=== PATIENT | female | born 1960 | race Caucasian/White ===

== ENCOUNTER 2025-01-03 15:14 | Outpatient (AMB) | payer OTHER, SELFPAY ==
--- NOTE | 2025-01-03 15:24 | A.OFFPC_ITS ---
Vital Signs 01/03/25 15:45 Height 5 ft 1.81 in Weight 128 lb 2 oz BMI 23.6 BP 132/84 Blood Pressure Location Rt brachial Position Sitting Respiration 12 Pulse 79 Pulse Source Pulse Oximeter Pulse Oximetry (%) 99 Oxygen Delivery Method Room Air Intake Visit Reasons: Establishing care Intake Note: New patient visit Allergies latex Allergy (Severe, Verified 01/03/25 15:32) Difficulty Breathing lisinopril Adverse Reaction (Intermediate, Verified 01/03/25 15:33) Cough penicillin Allergy (Unknown, Uncoded 01/03/25 15:33) Unknown Tobacco use date assessed: 01/03/25 Fall risk assessment: No Falls in past year Last assessed Fall Risk: 01/03/25 Dental Screening Dental Screen Date: 01/03/25 Did you have a dental visit in the last 12 months?: Yes Did you have a dental problem in the last 6 months where you did not have access to dental care?: No Was dental information given to patient?: Patient has dentist HPI HPI Comments History of Present Illness Details 64 year old female with a past medical h istory of hypertension, chronic anxiety, hypothyroidism, presenting to establish are CV: On amlodipine 10mg, hctz 12.5mg daily, valsartan daily. Denies chest pain, shortness of breath. BH: Was on zoloft, stopped it last week. She was on a low dose of lexapro which was good but when she tried to increase the lexapro and that was too much. Endocrine: On levothyroxine 25 daily. ROS CONSTITUTIONAL: Denies weight loss, fever and chills. HEENT: Denies changes in vision and hearing. RESPIRATORY: Denies SOB and cough. CV: Denies palpitations and CP GI: Denies abdominal pain, nausea, vomiting and diarrhea. : Denies dysuria and urinary frequency. MSK: Denies new myalgia and joint pain. SKIN: Denies rash and pruritus. NEUROLOGICAL: Denies headache PSYCHIATRIC: Denies recent changes in mood. PHYSICAL EXAM: GENERAL: Alert and oriented x 3. NAD EYES: EOMI. Anicteric. HENT: Moist mucous membranes. No scleral icterus. No cervical lymphadenopathy. LUNGS: Clear to auscultation bilaterally. CARDIOVASCULAR: Regular rate and rhythm. No murmur. No JVD. ABDOMEN: Soft, non-tender +bs EXTREMITIES: No edema. Non-tender. SKIN: No rashes or lesions. Warm. NEUROLOGIC: No focal neurological deficits. CN II-XII grossly intact PSYCHIATRIC: Cooperative. Appropriate mood and affect [facility] Surgical History History of thyroid surgery Family History Mother HTN (hypertension) Father Bladder cancer Social History Housing: House Patient Tobacco Use Status: Former Tobacco user (quit 04/2024) Cigarette Packs Per Day: 1 Years Smoked: 10 e-Cigarette/Vaping Use: Never Used Second Hand Smoke Exposure: No Current occupational status: retired Cognitive needs: No Hearing needs: No Vision needs: No Questionnaire PHQ-9 Over the last 2 weeks, how often have you been bothered by any of the following problems? 1. Little interest or pleasure in doing things: not at all 5. Poor appetite or overeating: not at all 6. Feeling bad about yourself - or that you are a failure or have let yourself or your family down: not at all 7. Trouble concentrating on things, such as reading the newspaper or watching television: not at all 8. Moving or speaking so slowly that other people could have noticed. Or the opposite - being so fidgety or restless that you have been moving around a lot more than usual: not at all 9. Thoughts that you would be better off or of hurting yourself in some way: not at all Source: Developed by Drs. Buck Givens, Abril Rivera, Zander Benavidez and colleagues, with an educational marry from [employer]. Thrive Questionnaire Date Thrive assessed: 01/03/25 I am a: Patient What is your living situation today?: I have a steady place to live Within the past 12 months, did the food you bought not last and you didn't have the money to get more?: Never true Within the past 12 months, did you worry whether your food would run out before you got money to buy more?: Never true Do you have trouble paying for medicines?: No Do you have trouble getting transportation to medical appointments?: No Do you have trouble paying your heating and electricity bill?: No Do you have trouble taking care of your child, family member or friend?: No Do you have trouble with day-to-day activities such as bathing, preparing meals, shopping, managing finances, etc.?: No Are you currently unemployed and looking for a job?: No Are you interested in more education?: No Please select the resources that you would like help with: None Currently or been in a relationship where the following occur: No concerns reported THRIVE Score: 0 AUDIT C Alcohol Use Questionnaire (AUDIT-C) 1. How often do you have a drink containing alcohol?: Never Total Score: 0 CHERYLE-7 AMB Questionnaire CHERYLE-7 Feeling nervous, anxious, or on edge: 1 = Several days Not being able to stop or control worryin = Not at all Worrying too much about different things: 0 = Not at all Trouble relaxin = Not at all Being so restless that it is hard to sit still: 0 = Not at all Becoming easily annoyed or irritable: 0 = Not at all Feeling afraid as if something awful might happen: 0 = Not at all Total CHERYLE-7 score (0-4 normal; 5-9 mild; 10-14 moderate; 15-21 severe): 1 Source: Developed by Drs. Buck Givens, Abril Rivera, Zander Benavidez and colleagues, with an educational marry from [employer]. Physical exam (Primary Care) Vital Signs: Last Vital Signs Pulse 79 01/03/25 15:45 Resp 12 01/03/25 15:45 BP 132/84 01/03/25 15:45 Pulse Ox 99 01/03/25 15:45 Oxygen Delivery Method Room Air 01/03/25 15:45 BMI result Body Mass Index 23.6 Tobacco/Smoking Status: Tobacco use Status Tobacco use date assessed 01/03/25 01/03/25 15:42 Patient Tobacco Use Status Former Tobacco user (quit 01/03/25 15:42 2023) e-Cigarette/Vaping Use Never Used 01/03/25 15:42 Thrive Assessment: Date of Thrive Assessment Date Thrive assessed 01/03/25 01/03/25 15:42 Currently or been in a relationship where the following occur: No concerns reported Coding Level of Care Code New Pt Level 4 (12439) Diagnoses Encounter to establish care Z76.89 Hypothyroidism, unspecified type E03.9 Hypothyroidism type: unspecified Primary hypertension I10 Hypertension type: primary hypertension Assessment & Plan Assessment & Plan (1) Encounter to establish care: Code(s): Z76.89 - Persons encountering health services in other specified circumstances Category: Medical (2) Hypothyroid: Code(s): E03.9 - Hypothyroidism, unspecified Category: Medical Qualifiers: Hypothyroidism type: unspecified Qualified Code(s): E03.9 - Hypothyroidism, unspecified (3) Hypertension: Code(s): I10 - Essential (primary) hypertension Category: Medical Qualifiers: Hypertension type: primary hypertension Qualified Code(s): I10 - Essential (primary) hypertension Plan 64 y/o female presenting to establish care. Past medical, surgical, social and family history reviewed. Labs ordered. Orders: Orders Comprehensive Met. Panel 01/05/25 E03.9 - Hypothyroidism, unspecified, I10 - Essential (primary) hypertension, Z76.89 - Persons encountering health services in other specified circumstances TSH reflex Free T4 01/05/25 E03.9 - Hypothyroidism, unspecified, I10 - Essential (primary) hypertension, Z76.89 - Persons encountering health services in other specified circumstances Vitamin D 25-OH (D2 and D3) 01/05/25 R79.89 - Other specified abnormal findings of blood chemistry Hemoglobin A1c 01/05/25 E03.9 - Hypothyroidism, unspecified, I10 - Essential (primary) hypertension, Z76.89 - Persons encountering health services in other specified circumstances
[2025-01-03 15:45] VITALS: BP 132/84; PULSE 79; RESP 12; O2SAT 99; BMI 23.6
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
--- OUTSIDE RECORDS SUMMARY | 2025-01-03 17:31 | XMS_ITS ---
Author Organization [facility] fluid OperationsLexy [facility] Address [address] [place] [id number] Care Team Providers Care Advertising Layout Worker Name Role Phone CHAO CARNEY Primary Care Provider [phone] MILES PHILLIPS Unavailable [phone] ALLERGIES Allergen (clinical drug ingredient) Drug/Non Drug Allergy documented on EMR Reaction Allergy Type Onset Date Status clonidine Clonidine Dry mouth and dizziness Drug Allergy Active Penicillin Unknown Drug Allergy Active REASON FOR VISIT BP follow up MEDICATIONS Medication SIG (Take, Route, Frequency, Duration) Notes Start Date End Date Status hydroCHLOROthiazide 12.5 MG 1 tablet in the morning Orally Once a day for 90 days 12/03/2024 03/21/2025 Active Sertraline HCl 50 MG 1 tablet Orally Once a day for 90 days 09/16/2024 Active amLODIPine Besylate 10 MG TAKE 1 TABLET BY MOUTH EVERY DAY for 90 days Active Levothyroxine Sodium 25 MCG 1 tablet in the morning on an empty stomach Orally Once a day for 90 days Active Valsartan 320 MG 1 tablet Orally Once a day for 90 days 11/12/2024 Active busPIRone HCl 7.5 MG 1 tablet Orally Twice a day for 90 days 09/22/2024 03/03/2025 Active LORazepam 0.5 MG 1 tablet Orally twice a day PRN Not-Taking Cholecalciferol 1.25 MG (42906 UT) 1 capsule Orally once a week Not-Taking cloNIDine HCl 0.2 MG 1 tablet Orally twice a day for 30 days 08/27/2024 Not-Taking amLODIPine Besylate 3mg QD Not-Taking Magnesium Glycinate Plus Active Vitamin D (Cholecalciferol) 50 MCG (2000 [...] smoker (10-19 cigs/day) Section Notes: Lives in [place], [place] VITAL SIGNS Height 62.5 in 12/21/2024 Height-cm 158.75 cm 12/21/2024 Encounters Encounter Location Date Provider Diagnosis [address] [id number] 12/21/2024 MILES PHILLIPS Essential (primary) hypertension I10 and Mixed anxiety and depressive disorder F41.8 ASSESSMENTS Encounter Date Diagnosis Assessment Notes Treatment Notes Treatment Clinical Notes Section Notes 12/21/2024 Essential (primary) hypertension (ICD-10 - I10) [...] siginificant improvement Working on increasing her activity level/socializat ion To get new therapist as well 12/21/2024 Other I personally spent with patient >30 minutes which includes education and coordination of care. PLAN OF TREATMENT Medication Medication Name Sig Start Date Stop Date Notes hydroCHLOROthiazide 12.5 MG 1 tablet in the morning Orally Once a day for 90 days 12/03/2024 03/21/2025 Sertraline HCl 50 MG 1 tablet Orally Onc e a day for 90 days 09/16/2024 amLODIPine Besylate 10 MG TAKE 1 TABLET BY MOUTH EVERY DAY for 90 days Levothyroxine Sodium 25 MCG 1 tablet in the morning on an empty stomach Orally Once a day for 90 days Valsartan 320 MG 1 tablet Orally Once a day for 90 days 11/12/2024 Treatment Notes Assessment Notes Essential (primary) hypertension Finally achieved a sweet spot in her BP management Her nephew is still going to monitor her BP discussed anxiety and BP as well Discussed hydration and eating a banana/glass of OJ daily to ensure potassium levels Has follow up with new PCP in 2 mo Mixed anxiety and depressive disorder As in HPI, siginificant improvement Working on increasing her activity level/socialization To get new therapist as well Other I personally spent w ith patient >30 minutes which includes education and coordination of care. Next Appt Details Follow Up: prn, Reason: N/A Progress Notes * JORGITO SOLORZANOADOB:1960 (63 yo F)Acc No.[id number]:12/21/2024 Progress Note Patient:??DARREL SOLORZANO Provider:??MILES PHILLIPS NP :1960?Age:63 Y?Sex:Fe male Date:12/21/2024 Phone: Address:[address] [place] [address], [facility] Pcp:CHAO CARNEY Subjective: * Chief Complaints: * ?BP follow up * HPI: ?Patient Care Team:? Providers/Specialist: Spiritual Counselor - Kimi Bautista ?Therapist: Joni Vera. ?Visit info:? The patient consents to HIPAA compliant telehealth visit using video platform within EHR system. The patient states they are in a private location in their home and the provider is located in the office in a private room. ?-Pt states she is feeling really good and finally happy with her BP; she went to the dentist last week and her BP was 133/82. ?-She states every once in a while she gets dizzy if she turns her head too fast or changes positions too quickly ?-Still is dealing with anxiety but much less, has not needed her prn buspar since the last time in the office. ?-She stopped therapy at [facility] but does continue with her nonpharm coping mechanisms. * Medical History:?? 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 * OB History:?? Histo ry:??AB Spontaneous:??1.?? * Surgical History:??Thyroid N odule 2004Vaginal Ablasion 2002 * Hospitalization/Major Diagno stic Procedure:?? * Family History:??Father: dec eased 47 yrs, Bladder Cancer.??Mother: 93 yrs.?? * Social History:?Tobacco Use:??Tobacco Use/Smoking??Tobacco use:??former smoker,??When did you start smoking???05/06/2024,??How long has it been since you last smoked???1-3 months,??Additional Findings: Tobacco User??Moderate cigarette smoker (10-19 cigs/day).?Drugs/Alcohol:??Do you smoke marijuana?: Admits, minimally. Do you drink alcohol?: Yes, Socially. ?Household:??Household??Marital status:??,??Number of adults in household:??1,??Any household pets???Yes Dog - Sweet Pea.?Miscellaneous:??Exercise: Does not exercise regularly. Occupation: retired. ?Lives in [place], [place]. * Medications:??TakingVitamin D (Cholecalciferol) 50 MCG (1999) Capsule 1 capsule Orally Once a day Magnesium Glycinate Plus hydroCHLOROthiazide 12.5 MG Tablet 1 tablet in the morning Orally Once a day , stop date 02/01/2025Sertraline HCl 50 MG Tablet 1 tablet Orally Once a day amLODIPine Besylate 10 MG Tablet TAKE 1 TABLET BY MOUTH EVERY DAY Levothyroxine Sodium 25 MCG Tablet 1 tablet in the morning on an empty stomach Orally Once a day Valsartan 320 MG Tablet 1 tablet Orally Once a day busPIRone HCl 7.5 MG Tablet 1 tablet Orally Twice a day As needed, stop date 03/03/2025Taking Vitamin D (Cholecalciferol) 50 MCG (2000 UT) Capsule 1 capsule Orally Once a day Taking Magnesium Glycinate Plus Taking hydroCHLOROthiazide 12.5 MG Tablet 1 tablet in the morning Orally Once a day , stop date 02/01/2025Taking Sertraline HCl 50 MG Tablet 1 tablet Orally Once a day Taking amLODIPine Besylate 10 MG Tablet TAKE 1 TABLET BY MOUTH EVERY DAY Taking Levothyroxine Sodium 25 MCG Tablet 1 tablet in the morning on an empty stomach Orally Once a day Taking Valsartan 320 MG Tablet 1 tablet Orally Once a day Taking busPIRone HCl 7.5 MG Tablet 1 tablet Orally Twice a day As needed, stop date 03/03/2025Not-TakingLORazepam 0.5 MG Tablet 1 tablet Orally twice a day ordered by stepping stones...not taking, Notes to Pharmacist: PRNCholecalciferol 1.25 MG (12807 UT) Capsule 1 capsule Orally once a week for 4 weeks then 2000 iu dailycloNIDine HCl 0.2 MG Tablet 1 tablet Orally twice a day As neededamLODIPine Besylate , Notes to Pharmacist: 3mg QDNot-Taking LORazepam 0.5 MG Tablet 1 tablet Orally twice a day ordered by stepping stones...not taking, Notes to Pharmacist: PRNNot-Taking Cholecalciferol 1.25 MG (64879 UT) Capsule 1 capsule Orally once a week for 4 weeks then 2000 iu dailyNot-Taking cloNIDine HCl 0.2 MG Tablet 1 tablet Orally twice a day As neededNot-Taking amLODIPine Besylate , Notes to Pharmacist: 3mg QD * Allergies:??Penicillin: Solitario rgyClonidine: Dry mouth and dizziness - Side Effectsno[Allergies Verified] Objective: * Vitals:??BP: Not Taken - Tel [facility], Ht: 62.5 in, Ht-cm: 158.75 cm. Assessment: * Assessment: 1.??Essential (primary) hype rtension - I10 (Primary)??2.??Mixed anxiety and depressive disorder - F41.8?? Plan: * Treatment: 2.??Mixed anxiety and depres sive disorder?? Notes: As in HPI, siginificant improvement Working on increasing her activity level/socialization To get new therapist as well ? 3.??Others?? Notes: I personally spent with patient >30 minutes which includes education and coordination of care.? * Procedure Codes:?? * Preventive Medicine:?Last CPE: 2019 Colonoscopy: Never Endoscopy: Never COVID Vac: No FLU Vac: No Shingles: No PV: No RSV: No. * Follow Up:??prn (Reason: N/A ) * Billing Information: * Visit Code:?? 79109 Office Visit, Est Pt., Level 4. * Procedure Codes:?? * Sign off status: Completed true * Provider:??MILES PHILLIPS NP Date:?? History and Physical Notes * HPI (History of Present Illness) Category Sub-Category Detail Notes Category Not es Patient Care Team Providers/Specialist: Spiritual Counselor - Kimi Bautista Therapist: Briana CruzyciatrJoni alicia
--- OUTSIDE RECORDS SUMMARY | 2025-01-03 17:31 | XMS_ITS | Data Portability ---
Author Organization [facility] Address [address] [place] [address] Assessment No assessment recorded. Plan of Treatment Reminders Order Date Submit Date Provider Last Modified By Organization Details Last Modified Time Details Appointments None recorded. Lab rapid strep group A, throat [facility], [address] [place], [address], 3 12:15:09 rapid flu (A+B) [facility]23 [facility], [address] [place], [address], 3 12:15:11 streptococc us group A, culture, throat 2022 023 [place], [address] [place] [address], [place], [address], 3 08:07:49 Referral None recorded. Procedures None recorded. Surgeries None recorded. Imaging None recorded. Medication Orders benzonatate 200 mg capsule 2022 023 [facility] #[id number], [address] [place], [address], 3 12:15:10 prednisone 20 mg tablet 2022 023 [facility] #[id number], [address] [place], [address], 12:15:10 albuterol sulfate HFA 90 mcg/actuati on aerosol inhaler 2022 023 [id number] [address] [place], [address], 12:15:10 Allergy Relief (fluticason e) 50 mcg/actuati on nasal spray,suspe nsion 2022 023 [id number] [address] [place], [address], 12:15:10 Patient TargetsNo targets recorded. Patient Instructions Encounter Date Encounter Id Patient Instructions Last Modified By Organization Details Last Modified Time 08/02/2023 [id number] sore throat: car e instructions Not available 08/02/2023 12:15:06 Use over the counter medications for your sore throat. Basic lozenges (cough drops) or lozenges with an anesthetic (numbing agent) can be used as needed for quick results; look for the active ingredient, benzocaine, for numbing lozenges (like Cepacol Extra or Chloraseptic Max). Gargling with warm salt water can also relieve pain. Dissolve 1/4 to 1/2 teaspoon in 8-ounces of warm water; gargle and spit salt solution every hour, as needed. Sore throat pain can also be reduced by taking regular doses of acetaminophen (tylenol) or ibuprofen (Advil); if you are given a prescription of PREDNISONE, you may continue to take acetaminophen, but do not take ibuprofen or naprosyn. While this isn't quick, it can significantly reduce pain within an hour after taking. Please switch toothbrush after being on antibiotic for 24 hrs. You should follow-up with your PCP in days, or at any time if your condition does not improve or worsens. Any acute change should prompt a visit to the nearest Emergency Department. . Not available 08/02/2023 12:15:03 Patient instruct ed on worsening signs and symptoms that would require further evaluation by ED or PCP such as fever of 101.0 or greater, congestion accompanied with coughing, vomiting, diarrhea, abdominal pain, decreased oral intake, lethargy, or other new symptom(s) experienced not discussed during this visit. Use humidifier and ensure good hydration. If you experience new concerning symptoms, shortness of breath, respiratory distress, or chest pain go to the ER. Use the medications prescribed. May use Decongestants if tolerated and no history of elevated blood pressure or Diabetes. Use saline nasal saline and Flonase daily for1 week. You may use tylenol for pain/fever. Do not take prednisone with Ibuprofen. Get some extra rest. When should you call for help? Call anytime you think you may need emergency care. For example, call if: You have severe trouble breathing. Call your doctor now or seek immediate medical care if: You have new or worse trouble breathing. You cough up dark brown or bloody mucus (sputum). You have a new or higher fever. You have a new rash. Watch closely for changes in your health, and be sure to contact your doctor if: You cough more deeply or more often, especially if you notice more mucus or a change in the color of your mucus. You are not getting better as expected. [email or web address] Not available 08/02/2023 12:14:44 Reason for Referral None Reported. Results Created Date Observation Date Name Description Value Unit Range Abnormal Flag Note LastModifiedBy Organization Detail LastModifiedTime 08/02/2008/05/2023 BETA STREP GP A CULTU RE beta strep gp A culture NEGATI VE Refer ence Range : Negat karin Not Available [facility] ([facility]) [address] [facility], [place], [address], 08/05/2023 08:07:49 08/02/2008/02/2023 rapid flu (A+B) Unknown Analyte negati ve Not Available [facility] [address] [place], [address], 08/02/2023 11:43:20 08/02/2008/02/2023 rapid flu (A+B) Unknown Analyte negati ve Not Available [facility] [address] [place], [address], 08/02/2023 11:43:20 08/02/20 23 08/02/2023 rapid flu (A+B) Unknown Analyte negati ve Not Available [facility] [address] [place] [address], [address], 08/02/2023 11:43:20 08/02/2008/02/2023 rapid flu (A+B) Unknown Analyte yes Not Available [address] [place], [place] [address]em[address] [place] [address], [address], 08/02/2023 11:43:20 08/02/2008/02/2023 rapid strep group A, throa t Unknown Analyte negati ve Not Available [address] [place], [place] [address]em[address] [place] [address], [address], 08/02/2023 11:43:11 08/02/20 23 08/02/2023 rapid strep group A, throa t Unknown Analyte negati ve Not Available [address] [place], [place] [address] [address] [place] [address], [address], 08/02/2023 11:43:11 08/02/2008/02/2023 rapid strep group A, throa t Unknown Analyte yes Not Available [address] [place], [place] [address]em[place] [address] [place] [address], [address], 08/02/2023 11:43:11 Result Notes None recorded. Problems No Known Problems Medical Equipment None Reported. Allergies Allergen ID Allergen Name Allergen Category Reaction Reaction Severity Criticality Documentation Date Start Date Code Code System Note Provider Name and Address Organization Details Recorded Time 820651 Product containin g penicilli n (product) medicatio n Not available Not available Not available 08/02/2023 43007 8001 SNOMED LIVE Flores [facility] - [facility] 11:43:42 678111 Bactrim medicatio n Not available Not available Not available 08/02/2023 13151 9 RxNorm LIVE Flores [facility] 11:43:48 Medications Name Sig Start Date Stop Date Status Note LastModified by Organization Details LastModified Time benzonatate 200 mg capsule Take 1 capsule 3 times a day by oral route as needed for 7 days. 2022 active Not Available Not Available Not Avai lable prednisone 20 mg tablet Take 2 tablets every day by oral route in the morning for 3 days. 2022 active Not Available Not Available Not Avai lable albuterol sulfate HFA 90 mcg/actuatio n aerosol inhaler Inhale 2 puffs every 4-6 hours by inhalation route as needed for 10 days. 2022 active Not Available Not Available Not Avai lable Allergy Relief (fluticasone ) 50 mcg/actuatio n nasal spray,suspen kassie [place] 1 spray every day by intranasal route in the morning for 30 days. 2022 active Not Available Not Available Not Avai lable Vitals Date Recorded Body height Body mass index (BMI) Body weight Pain severity - 0-10 verbal numeric rating [Score] - Reported Respiratory rate Oxygen saturation Oxygen saturation in Arterial blood by Pulse oximetry Heart rate Body temperature Systolic blood pressure Diastolic blood pressure Provider Name and Address Organization Details Last Updated DateTime 157.48 cm 22.9 kg/m2 80083.0 5 g 0 19 /min 97 % 97 % 77 /min 98.7 [degF] 159 mm[Hg] 99 mm[Hg] KYRA Guillaume [facility] 11:46:49 Social History Question Answer Notes LastModified by Organizat ion Details LastModified Time Tobacco Smoking Status Current Every Day Smoker [facility] 08/02/2023 11:44:17 What Is Your Level Of Alcohol Consumption? None Information not available 08/02/2023 Have You Had A Flu Shot This Season? No Information not available 08/02/2023 If No, Would You Like A Flu Shot Today? No Information not available 08/02/2023 How Much Tobacco Do You Smoke? 0.5 PPD Information not available 08/02/2023 Do You Use Any Illicit Or Recreational Drugs? No Information not available 08/02/2023 Sex: Unknown Functional Status None recorded. Mental Status None recorded. Family History Relationship Description Onset Age of this Age Resolved Age Notes LastModified by Organization Details LastModified Time Father No current problems or disability Not available 11:44:10 Mother No current problems or disability Not available 11:44:10 Medical History No medical history recorded. Gynecological History Statement/Question Response LMP N/A Obstetrics History GPAL:G 0 P 0 0 0 0 Past Encounters Encounter ID Performer Location Encounter Start Date Encounter Closed Date Diagnosis/Indication Diagnosis SNOMED-CT Code Diagnosis ICD10 Code Diagnosis [place] [id number] [place] [address] [phone] 08/02/2023 11:32:51 08/02/2023 12:16:37 Acute pharyngitis 796441163 J02.9 Acute bronchitis 4315499 2 J20.9 Health Concerns Section Related Observation LastModified by Organization Detai ls LastModified Time None Recorded Concern Status LastModified by Organization Details LastModified Time None Recorded Advance Directives Directive None Recorded Payers Encounter Date Sequence Insurance Name Policy Number Policy Meadows Covered Member ID Meadows Member ID Guarantor Name 08/02/2023 PROMPT PAY Gl nadir Akers Notes Date Note Type Note Provider Name and Address Organization Details Recorded Time 3 text/html Sore throatReported bypatient.Source of patient informationInformation obtained from patient; Patient arrived at Urgent Care ambulatory; learning styles: auditory Location:throat Severity:mild Quality:sharp; burning Onset/Timin days Associated Symptoms:no sputum production; no shortness of breath; no wheezing; no vomiting; no nausea;sore throat;hoarseness;coughing; sinus pain/ congestion Context:no foreign travel; non-smoker;sick contact Modifying Factors:exposed to Strep non household Cole Cedeno NP [address] [place], [address], [place] - [facility] 08/02/2023 12:15:44 OBGyn Episode No OBEpisode recorded.
--- OUTSIDE RECORDS SUMMARY | 2025-01-03 17:32 | XMS_ITS ---
Author Organization [facility] Address [address], [place] [id number] Care Team Providers Care Tax Examiner Name Role Phone CHAO CARNEY Primary Care Provider MIELS PHILLIPS Unavailable [phone] REASON FOR VISIT f/u meds Encounters Encounter Location Date Provider Diagnosis [address] [id number] 12/01/2024 MILES PHILLIPS Major depressive disorder with current active episode, unspecified depression episode severity, unspecified whether recurrent F32.9 and Essential (primary) hypertension I10 ASSESSMENTS Encounter Date Diagnosis Assessment Notes Treatment Notes Treatment Clinical Notes Section Notes 12/01/2024 Major depressive disorder with current active episode, unspecified depression episode severity, unspecified whether recurrent (ICD-10 - F32.9) 12/01/2024 Essential (primary) hypertension (ICD-10 - I10) PLAN OF TREATMENT No Information Progress Notes * NUBIA SOLORZANOB:1960 (64 yo F)Acc No.[id number]:12/01/2024 Progress Notes Patient:??DARREL SOLORZANO Provider:??MILES PHILLIPS NP :1960?Age:63 Y?Sex:Fe male Date:12/01/2024 Phone: Address:[address] [place], [place] Pcp:CHAO CARNEY Subjective: * Chief Complaints: * ?1. F/u meds. * ROS:?all systems reviewed and are non-contributory unless specified in the HPI. * Medical History:?? Objective: * Examination: ?General Examination: ?GEN: NAD, speaking in full complete sentences, thoughts clear and appropriate ?RESP: nonlabored breathing, lungs clear/equal all maria ?CV: S1S2 regular ?NEURO: AO x 3 ?PSYCH: judgment/insight intact, NL mood/affect. Assessment: * Assessment: 1.??Major depressive disorde r with current active episode, unspecified depression episode severity, unspecified whether recurrent - F32.9 (Primary)??2.??Essential (primary) hypertension - I10?? Plan: * Treatment: * Billing Information: * Visit Code:?? * Procedure Codes:?? * Sign off status: Pending * Provider:??MILES PHILLIPS NP Date:?? History and Physical Notes * Examination Category Sub-Category Detail Notes Category Not es General Examination GEN: NAD, speaking in full complete sentences, thoughts clear and appropriate RESP: nonlabored breathing, lungs clear/equal all maria CV: S1S2 regular NEURO: AO x 3 PSYCH: judgment/insight intact, NL mood/affect
--- OUTSIDE RECORDS SUMMARY | 2025-01-03 17:32 | XMS_ITS | Clinical Summary ---
Author Organization [facility] Address [id number] [place] [id number] Care Team Providers Care Sports Trainer Name Role Phone Khushbu Gonzalez MD Primary Care Provider [phone] Allergies No known active allergies Medications propranoloL (INDERAL) 10 mg tablet TAKE 1 TABLET BY MOUTH TWICE A DAY 180 tablet 1 09/17/2024 Active cholecalciferol (VITAMIN D-3) 1,250 mcg (50,000 unit) capsule Take 1 Capsule by mouth once a week. 06/24/2024 Active levothyroxine (SYNTHROID, LEVOTHROID) 25 mcg tablet Take 1 tablet (25 mcg total) by mouth 1 (one) time each day. 06/22/2024 Active lisinopriL (PRINIVIL,ZESTR IL) 30 mg tablet Take 1 tablet (30 mg total) by mouth 1 (one) time each day. 06/22/2024 Active escitalopram (LEXAPRO) 20 mg tablet TAKE 1 TABLET BY MOUTH EVERY DAY 90 tablet 10/19/2024 Active Active Problems Problem Noted Date Diagnosed Date Anxiety 06/22/2024 Depression 06/22/2024 Hypertension 06/22/2024 Hypothyroid 06/22/2024 Surgical History Surgery Date Site/Laterality Comments OTHER SURGICAL HISTORY 2000 PROCEDURE: HISTORICAL SUBTOTAL THYROIDECTOMY OTHER SURGICAL HISTORY PROCEDURE: HISTORICAL UNSPECIFIED SURGERY; COMMENT: endometrial ablation Family History Medical History Relation Name Comments Bladder Cancer Father Diabetes Maternal Grandmother Hypertension Mother Relation Name Status Comments Father Maternal Grandmother Mother Social History Tobacco Use Types Packs/Day Years Used Date Smoking Tobacco: Former Cigarettes Q uit: 04/10/2024 Smokeless Tobacco: Never Alcohol Use Standard Drinks/Week Comments Not Currently 0 (1 standard drink = 0.6 oz pur e alcohol) Comments Unknown Sex and Gender Information Value Date Recorded Sex Assigned at Not on file Legal Sex Female 11:39 AM EDT Gender Identity Not on file Sexual Orientation Not on file Obstetrics History Last Filed Vital Signs Vital Sign Reading Time Taken Comments Blood Pressure 180/98 07/20/2024 3:24 PM EDT Pulse 63 07/20/2024 1:33 PM EDT Temperature - - Respiratory Rate - - Oxygen Saturation - - Inhaled Oxygen Concentration - - Weight 55.8 kg (123 lb) 07/20/2024 1:33 PM EDT Height 157.5 cm (5' 2 ) 07/20/2024 1:33 PM EDT Body Mass Index 22.5 07/20/2024 1:33 PM EDT Plan of Treatment Upcoming Encounters Date Type Department Care Team (Late st Contact Info) Description 02/23/2025 2:00 PM EDT Office Visit Adult Medicine [address] [phone] Khushbu Gonzalez MD [address] [place] [phone] Health Maintenance Due Date Last Done Comments Breast Cancer Screening 1960 DTaP,Tdap,and Td Vaccines (1 - Tdap) 1978 Cervical Cancer Screening: P ap Smear 1980 Pneumococcal Vaccine: 50+ Years (1 of 1 - PCV) 2009 Zoster Vaccines (1 of 2) 2009 COVID-19 Vaccine ( - 2023-2 5 season) 2024 Influenza Vaccine (#1) 2024 Colorectal Cancer Screening: Colonoscopy 08/22/2024 Depression Screening 08/22/2024 HIV Screening 08/22/2024 Hepatitis C Screening 08/22/2024 Lung Cancer Screening (Low Dose CT) 08/22/2024 Social Influencers of Health Screening 08/22/2024 Falls Risk Assessment 2024 Hypertension/CHF/CAD Annual BMP Blood Test 06/22/2025 06/22/2024, 06/22/2024 Cholesterol Screening (Lipid Panel) 06/22/2029 06/22/2024, 06/22/2024 RSV Immunization Patients 60 + Years Old (1 - 1-dose 75+ series) 2034 HIB Vaccines Aged Out No longer eligi ble based on patient's age to complete this topic HPV Vaccines Aged Out No longer eligi ble based on patient's age to complete this topic Hepatitis A Vaccines Aged Out No long er eligible based on patient's age to complete this topic Hepatitis B Vaccines Aged Out No long er eligible based on patient's age to complete this topic IPV Vaccines Aged Out No longer eligi ble based on patient's age to complete this topic MMR Vaccines Aged Out No longer eligi ble based on patient's age to complete this topic Meningococcal ACWY Vaccine Aged Out N o longer eligible based on patient's age to complete this topic Meningococcal B Vacine Aged Out No lo nger eligible based on patient's age to complete this topic Pneumococcal Vaccine: Pediatrics (0 to 5 Years) and At-Risk Patients (6 to 64 Years) Aged Out No longer eligible b ased on patient's age to complete this topic RSV Immunization Patients Under 20 months Aged Out No longer eligible b ased on patient's age to complete this topic Varicella Vaccines Aged Out No longer eligible based on patient's age to complete this topic Procedures Procedure Name Priority Date/Time Associated Diagnosis Comments ANNUAL BMP BLOOD TEST Routine 06/22/2024 LIPID PANEL Routine 06/22/2024 from Last 3 Months or Most Recently Relevant to Health Maintenance Results * Annual BMP Blood Test (06/22/2024) Pathologist [facility] Annual BMP Blood Test abstracted Historical Provider HEALTH MAINTENANCE Final Result * (ABNORMAL) Lipid panel (06/22/2024) LDL/HDL Ratio 5(A) 0 - 4 Triglycerides 80 0 - 150 mg/dL Cholesterol 236(A) 0 - 200 mg/dL HDL 50 >=40 mg/dL LDL Cholesterol 170(A) 0 - 100 mg/dL Blood Venous blood specimen / Unknown Historical Provider LAB BLOOD ORDERABLES Tila l Result from Last 3 Months or Most Recently Relevant to Health Maintenance Care Teams Sports Trainer Relationship Specialty Start Date End Date Khushbu Gonzalez MD PCP - General 06/17/24
--- OUTSIDE RECORDS SUMMARY | 2025-01-03 17:32 | XMS_ITS ---
Author Organization [facility] [employer] [facility] Address [address] [place] [id number] Care Team Providers Care Radio Rigger Name Role Phone CHAO CARNEY Primary Care Provider [phone] MIL[address] PHILLIPS Unavailable [phone] REASON FOR VISIT f/u meds & wellness MEDICATIONS Medication SIG (Take, Route, Frequency, Duration) Notes Start Date End Date Status Levothyroxine Sodium 25 MCG 1 tablet in the morning on an empty stomach Orally Once a day for 90 days Active Valsartan 320 MG 1 tablet Orally Once a day for 90 days 11/12/2024 Active busPIRone HCl 7.5 MG 1 tablet Orally Twice a day for 90 days 09/22/2024 03/03/2025 Active Vitamin D (Cholecalciferol) 50 MCG (2000 UT) 1 capsule Orally Once a day Active Magnesium Glycinate Plus Active Sertraline HCl 50 MG 1 tablet Orally Once a day for 90 days 09/16/2024 Active amLODIPine Besylate 10 MG TAKE 1 TABLET BY MOUTH EVERY DAY for 90 days Active amLODIPine Besylate 3mg QD Not-Taking hydroCHLOROthiazide 12.5 MG 1 tablet in the morning Orally Once a day for 90 days 12/03/2024 02/01/2025 Active valACYclovir HCl 1 GM 2 tabs Orally Once a day for 30 days 12/03/2024 12/13/2024 Active LORazepam 0.5 MG 1 tablet Orally twice a day PRN Not-Taking Cholecalciferol 1.25 MG (80126 UT) 1 capsule Orally once a week Not-Taking cloNIDine HCl 0.2 MG 1 tablet Orally twice a day for 30 days 08/27/2024 Not-Taking SOCIAL HISTORY Tobacco Use: Social History Observation [...] smoker (10-19 cigs/day) Section Notes: Lives in [place], [place] VITAL SIGNS Blood pressure systolic 158 mm Hg 12/03/19 25 Blood pressure diastolic 92 mm Hg 025 Heart Rate 92 /min 12/03/2024 Oximetry 97 % 12/03/2024 Weight 123.0 lbs 12/03/2024 Weight-kg 55.79 kg 12/03/2024 Height 62.5 in 12/03/2024 Height-cm 158.75 cm 12/03/2024 BMI 22.14 kg/m2 12/03/2024 Encounters Encounter Location Date Provider Diagnosis [address] [phone] 12/03/2024 MILES PHILLIPS Essential (primary) hypertension I10 and Mixed anxiety and depressive disorder F41.8 ASSESSMENTS Encounter Date Diagnosis Assessment Notes Treatment Notes Treatment Clinical Notes Section Notes 12/03/2024 Essential (primary) hypertension (ICD-10 - I10) Significantly improved Will add HCTZ to regimen Will check in 2 weeks via phone call as nephew is EMT will take BP 12/03/2024 Mixed anxiety and depressive disorder (ICD-10 - F41.8) Very happy with improved mental health She is going to change mental health provider Taking buspar prn 12/03/2024 Other Total time spen t with patient 32 minutes which includes face to face visit, education and coordination of care. PLAN OF TREATMENT Medication Medication Name Sig Start Date Stop Date Notes Levothyroxine Sodium 25 MCG 1 tablet in the morning on an empty stomach Orally Once a day for 90 days Valsartan 320 MG 1 tablet Orally Once a day for 90 days 11/12/2024 busPIRone HCl 7.5 MG 1 tablet Orally Twi ce a day for 90 days 09/22/2024 03/03/2025 Sertraline HCl 50 MG 1 tablet Orally Onc e a day for 90 days 09/16/2024 amLODIPine Besylate 10 MG TAKE 1 TABLET BY MOUTH EVERY DAY for 90 days hydroCHLOROthiazide 12.5 MG 1 tablet in the morning Orally Once a day for 90 days 12/03/2024 02/01/2025 valACYclovir HCl 1 GM 2 tabs Orally Once a day for 30 days 12/03/2024 12/13/2024 Treatment Notes Assessment Notes Essential (primary) hypertension Significantly improved Will add HCTZ to regimen Will check in 2 weeks via phone call as nephew is EMT will take BP Mixed anxiety and depressive disorder Very happy with improved mental health She is going to change mental health provider Taking buspar prn Other Total time spent wit h patient 32 minutes which includes face to face visit, education and coordination of care. Next Appt Details Follow Up: 2 Weeks, Reason: phone call Progress Notes * MEENAKSHILIVEMOIZ NUBIAB:1960 (63 yo F)Acc No.[id number]:12/03/2024 Progress Notes Patient:??AGNES SOLORZANO Provider:??MILES PHILLIPS NP :1960?Age:63 Y?Sex:Fe male Date:12/03/2024 Phone: Address:[address] [place] [address], [place], [id number] Pcp:CHAO CARNEY Subjective: * Chief Complaints: * ?F/u meds & wellness * HPI: ?Patient Care Team:? Providers/Specialist: Spiritual Counselor - Kimi Bautista ?[facility]. ?Visit info:? Agnes presents today for f/u meds & wellness. ?She started the Valsartan about 2 wks ago. BP elevated today, but she is emotional regarding office closure. ?-She is very pleased today as BP is the best its been and she did not take any antianxiety meds today. * ROS:?all systems reviewed and are non-contributory unless specified in the HPI. * Medical History:?? 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 Occupation: retired. ?Lives in [place], [place]. * Medications:??TakingVitamin D (Cholecalciferol) 50 MCG (1999 UT) Capsule 1 capsule Orally Once a day Magnesium Glycinate Plus Sertraline HCl 50 MG Tablet 1 tablet Orally Once a day amLODIPine Besylate 10 MG Tablet TAKE 1 TABLET BY MOUTH EVERY DAY FOR 30 DAYS Levothyroxine Sodium 25 MCG Tablet 1 tablet in the morning on an empty stomach Orally Once a day Valsartan 320 MG Tablet 1 tablet Orally Once a day Taking Vitamin D (Cholecalciferol) 50 MCG (1999 UT) Capsule 1 capsule Orally Once a day Taking Magnesium Glycinate Plus Taking Sertraline HCl 50 MG Tablet 1 tablet Orally Once a day Taking amLODIPine Besylate 10 MG Tablet TAKE 1 TABLET BY MOUTH EVERY DAY FOR 30 DAYS Taking Levothyroxine Sodium 25 MCG Tablet 1 tablet in the morning on an empty stomach Orally Once a day Taking Valsartan 320 MG Tablet 1 tablet Orally Once a day Not-TakingLORazepam 0.5 MG Tablet 1 tablet Orally twice a day ordered by stepping stones...not taking, Notes to Pharmacist: PRNbusPIRone HCl 7.5 MG Tablet 1 tablet Orally Twice a day As neededCholecalciferol 1.25 MG (38845 UT) Capsule 1 capsule Orally once a week for 4 weeks then 2000 iu dailycloNIDine HCl 0.2 MG Tablet 1 tablet Orally twice a day As neededamLODIPine Besylate , Notes to Pharmacist: 3mg QDMedication List reviewed and reconciled with the patientNot-Taking LORazepam 0.5 MG Tablet 1 tablet Orally twice a day ordered by stepping stones...not taking, Notes to Pharmacist: PRNNot-Taking busPIRone HCl 7.5 MG Tablet 1 tablet Orally Twice a day As neededNot-Taking Cholecalciferol 1.25 MG (86929 UT) Capsule 1 capsule Orally once a week for 4 weeks then 2000 iu dailyNot-Taking cloNIDine HCl 0.2 MG Tablet 1 tablet Orally twice a day As neededNot-Taking amLODIPine Besylate , Notes to Pharmacist: 3mg QDMedication List reviewed and reconciled with the patient Objective: * Vitals:??BP:158/92mm Hg, HR: 92/min, Oxygen sat %:97%, Wt:123.0lbs, Wt-k.79 kg, Ht: 62.5 in, Ht-cm: 158.75 cm, BMI:22.14Index, Body Surface Area: 1.57. * Examination: ?General Examination: ?GEN: NAD, speaking in full complete sentences, thoughts clear and appropriate ?RESP: nonlabored breathing, lungs clear/equal all maria ?CV: S1S2 regular ?NEURO: AO x 3 ?PSYCH: judgment/insight intact, NL mood/affect. Assessment: * Assessment: 1.??Essential (primary) hype rtension - I10 (Primary)??2.??Mixed anxiety and depressive disorder - F41.8?? Plan: * Treatment: 2.??Mixed anxiety and depres sive disorder?? Notes: Very happy with improved mental health She is going to change mental health provider Taking buspar prn? 3.??Others?? Start valACYclovir HCl Tablet, 1 GM, 2 tabs, Orally, Once a day take 2 tabs at onset of sore for 2 doses, 30 days, 60 Tablet.? Notes: Total time spent with patient 32 minutes which includes face to face visit, education and coordination of care.? * Procedure Codes:?? * Preventive Medicine:?Last CPE: 2019 Colonoscopy: Never Endoscopy: Never COVID Vac: No FLU Vac: No Shingles: No PV: No RSV: No. * Follow Up:??2 Weeks (Reason: phone call) * Billing Information: * Visit Code:?? 13271 Office Visit, Est Pt., Level 4. * Procedure Codes:?? * Sign off status: Completed true * Provider:??MILES PHILLIPS NP Date:?? History and Physical Notes * HPI (History of Present Illness) Category Sub-Category Detail Notes Category Not es Patient Care Team Providers/Specialist: Spiritual Counselor - Kimi Bautista Therapist: [facility] Examination Category Sub-Category Detail Notes Category Not es General Examination GEN: NAD, speaking in full complete sentences, thoughts clear and appropriate RESP: nonlabored breathing, lungs clear/equal all maria CV: S1S2 regular NEURO: AO x 3 PSYCH: judgment/insight intact, NL mood/affect
--- OUTSIDE RECORDS SUMMARY | 2025-01-03 17:32 | XMS_ITS | Continuity of Care Document ---
Author Organization [facility] Address [address] [place] [address]- Care Team Providers Care Nut Grader Name Role Phone Not on Staff, PCP Primary Care Physician Unavail able Encounter [facility] [place](s): 12/02/24 - 01/01/25 [facility] [address] [place] [address]- Encounter Type: Triage Allergies, Adverse Reactions, Alerts No Known Medication Allergies Medications amLODIPine 5 mg oral tablet 5 mg, 1, tablet, By Mouth, Daily, # 90 tablet, Refills 0, Tot. Refills 0, Maintenance, 05/25/24 2:28:00 PM EDT, Route to Pharmacy Electronically, [facility]/pharmacy #[id number], Partial fill upon patient request if the prescription is for a schedule II opioid drug., 158, cm, 05/25/24 11:15:00 EDT, Height, 52.8,kg, 05/25/24 11:15:00 EDT, Dry Weight Start Date: 05/25/24 Status: Ordered Quantity: 90.0 Unit: tablet Repeat number: 1 escitalopram 10 mg oral tablet 1 tablet = 10 mg, By Mouth, Daily, # 90 tablet, 0 Refills, Maintenance, 05/25/24 2:35:00 PM EDT, Tablet, [facility]/pharmacy #[id number], Partial fill upon patient request if the prescription is for a schedule II opioid drug., 158, cm, 05/25/24 11:15:00 EDT, Height, 52.8, kg, 05/25/24 11:15:00 EDT, Dry Weight Start Date: 05/25/24 Status: Ordered Quantity: 90.0 Unit: tablet Repeat number: 1 levothyroxine 0.025 mg oral tablet 1 tablet = 25 mcg, By Mouth, Daily, # 30 tablet, 2 Refills, Maintenance, 05/25/24 2:34:00 PM EDT, Tablet, [facility]/pharmacy #[id number], Partial fill upon patient request if the prescription is for a schedule IIopioid drug., 158, cm, 05/25/24 11:15:00 EDT, Height, 52.8, kg, 05/25/24 11:15:00 EDT, Dry Weight Start Date: 05/25/24 Status: Ordered Quantity: 30.0 Unit: tablet Repeat number: 3 levothyroxine 25 mcg (0.025 mg) oral capsule 1 capsule = 25 mcg, By Mouth, Daily, # 30 capsule, 0 Refills, Maintenance, 04/30/24 11:10:00 PM EDT,Capsule, [facility]/pharmacy #[id number], Partial fill upon patient request if the prescription is for a schedule II opioid drug., 160, cm, 04/30/24 19:17:00 EDT, Height, 51.3, kg, 04/30/24 19:17:00 EDT, Dry Weight Start Date: 04/30/24 Status: Ordered Quantity: 30.0 Unit: capsule Repeat number: 1 lisinopril 10 mg oral tablet 10 mg, 1, tablet, By Mouth, Daily, # 90 tablet, Refills 0, Tot. Refills 0, Maintenance, 05/25/24 2:28:00 PM EDT, Route to Pharmacy Electronically, [facility]/pharmacy #[id number], Partial fill upon patient requestif the prescription is for a schedule II opioid drug., 158, cm, 05/25/24 11:15:00 EDT, Height, 52.8, kg, 05/25/24 11:15:00 EDT, Dry Weight Start Date: 05/25/24 Status: Ordered Quantity: 90.0 Unit: tablet Repeat number: 1 lisinopril 5 mg oral tablet 5 mg, 1, tablet, By Mouth, Daily, # 30 tablet, Refills 0, Tot. Refills 0, Maintenance, 04/30/24 11:09:00 PM EDT, Route to Pharmacy Electronically, [facility]pharmacy #[id number], Partial fill upon patient requestif the prescription is for a schedule II opioid drug., 160, cm, 04/30/24 19:17:00 EDT, Height, 51.3, kg, 04/30/24 19:17:00 EDT, Dry Weight Start Date: 04/30/24 Status: Ordered Quantity: 30.0 Unit: tablet Repeat number: 1 LORazepam 0.5 mg oral tablet 1 tablet = 0.5 mg, By Mouth, Every 8 hours, 0 Refills, Maintenance, 04/30/24 7:20:00 PM EDT, Partialfill upon patient request if the prescription is for a schedule II opioid drug. Start Date: 04/30/24 Status: Ordered Repeat number: 1 propranolol 10 mg oral tablet 10 mg, 1, tablet, By Mouth, 2 times a day, PRN, # 30 tablet, Refills 0, Tot. Refills 0, Maintenance, Anxiety, 05/25/24 2:34:00 PM EDT, Route to Pharmacy Electronically, [facility]/pharmacy #[id number], Partial fill upon patient request if the prescription is for a schedule II opioid drug., 158, cm, 05/25/24 11:15:00 EDT, Height, 52.8, kg, 05/25/24 11:15:00 EDT, Dry Weight Start Date: 05/25/24 Status: Ordered Quantity: 30.0 Unit: tablet Repeat number: 1 propranolol 10 mg oral tablet 10 mg, 1, tablet, By Mouth, 2 times a day, PRN, # 30 tablet, Refills 0, Tot. Refills 0, Maintenance, Anxiety, 04/30/24 11:36:00 PM EDT, Route to Pharmacy Electronically, [facility]/pharmacy #[id number], Partial fill upon patient request if the prescription is for a schedule II opioid drug., 160, cm, 04/30/24 19:17:00 EDT, Height, 51.3, kg, 04/30/24 19:17:00 EDT, Dry Weight Start Date: 04/30/24 Status: Ordered Quantity: 30.0 Unit: tablet Repeat number: 1 Patient Care team information Care Team Personnel Name: Not on Staff, PCP Position: S Physician (General Medicine) Member Role: PCP Care Team Related Persons Name: SILVIO SOLORZANO Name: HOLLIE COLLADO Insurance Providers Guarantor name: Health Plan Information #: 1 Payer: [employer] FF NON BHP HMO Member Number: ARI Policy Number: NA Group Number: NA Health Plan Information #: 2 Payer: MEDICARE PART B OUTPT Member Number: NA Policy Number: NA Group Number: NA
== END 2025-01-03 16:18 | disposition home or self-care (01) ==
PROVIDERS: PCP Internal Medicine; Visit Provider Internal Medicine
DX: Z76.89 Persons encountering health services in other specified circumstances (principal); E03.9 Hypothyroidism, unspecified; I10 Essential (primary) hypertension

== ENCOUNTER → 2025-01-03 15:14 | Outpatient (BNVA) | payer OTHER, SELFPAY | PROVIDERS: PCP Internal Medicine; Visit Provider Internal Medicine ==

== ENCOUNTER 2025-01-05 12:35 | Outpatient (REF) | payer OTHER, SELFPAY ==
[2025-01-05 14:39] LABS: Estimated Average Glucose 108 mg/dL; Hemoglobin A1c % 5.4 % (<6.0); Total Hemoglobin (HGBA1C) 3400.0089 umol/L
[2025-01-05 14:55] LABS: Alanine Aminotransferase 21 U/L (0-31); Albumin Level 4.1 g/dL (3.5-5.0); Alkaline Phosphatase 44 U/L (39-117); Anion Gap 12 (12-20); Aspartate Amino Transferase 25 U/L (5-31); Bilirubin Total 0.3 mg/dL (0.0-1.0); Blood Urea Nitrogen 12 mg/dL (9-16); Calcium 9.6 mg/dL (8.4-10.2); Carbon Dioxide 30 mmol/L (22-29); Chloride 102 mmol/L (96-108); Estimated Glomerular Filt Rate > 60; Glucose Random 119 mg/dL (60-115); Potassium 3.6 mmol/L (3.3-5.1); Sodium 140 mmol/L (135-145)
[2025-01-05 15:00] LABS: TSH reflex Free T4 2.62 uIU/mL (0.32-4.0)
--- OUTSIDE RECORDS SUMMARY | 2025-01-05 15:20 | XMS_ITS | Patient Health Record ---
Author Organization [facility] [email or web address] [facility] Address [address] [place] [address] [phone] Care Team Providers Care Photovoltaic Fabrication Technician Name Role Phone CHAO CARNEY Primary Care Provider MILES PHILLIPS Unavailable [phone] ALLERGIES Allergen (clinical drug ingredient) Drug/Non Drug [...] a day PRN Not-Taking Cholecalciferol 1.25 MG (04591 UT) 1 capsule Orally once a week [...] smoker (10-19 cigs/day) Section Notes: [place], [place] PROBLEMS Problem Type ICD Code Onset Dates Problem Status W/U Status Risk SNOMED Code Notes Problem Hypothyroidism, unspecified (E03.9) Active confirmed Hypothyroidism (39088063) Problem Vitamin D deficiency, unspecified (E55.9) Active confirmed Vitamin D deficiency (61541678) Problem Hyperlipidemia, unspecified (E78.5) Active confirmed Hyperlipidemia (45726216) Problem Essential (primary) hypertension (I10) Active confirmed Essential hypertension (94707837) Problem Prediabetes (R73.03) Active confirmed Prediabetes (356658478) Problem Mixed anxiety and depressive disorder (F41.8) Active confirmed Mixed anxie ty and depressive disorder (212242399) Problem Leukocytosis, unspecified type (D72.829) Active confirmed Leukocytosis (565701729) Problem Major depressive disorder with current active episode, unspecified depression episode severity, unspecified whether recurrent (F32.9) Active confirmed Major depressio n, single episode (28698745) VITAL SIGNS Heart Rate 92 /min 12/03/2024 Oximetry 97 % 12/03/2024 Height-cm 158.75 cm 12/21/2024 Blood pressure diastolic 92 mm Hg 12/03/2024 Weight-kg 55.79 kg 12/03/2024 Height 62.5 in 12/21/2024 Blood pressure systolic 158 mm Hg 12/03/2024 Weight 123.0 lbs 12/03/2024 BMI 22.14 kg/m2 12/03/2024 Encounters Encounter Location Date Provider Diagnosis [address] [id number] 07/30/[address] [id number] 12/01/2024 MILES PHILLIPS Major depressive disorder with current active episode, unspecified depression episode severity, unspecified whether recurrent F32.9 and Essential (primary) hypertension I10 [address] [id number] 06/25/2024 MILES PHILLIPS Hyperlipidemia, unspecified E78.5 ; Vitamin D deficiency, unspecified E55.9 ; Mixed anxiety and depressive disorder F41.8 ; Essential (primary) hypertension I10 and Hypothyroidism, unspecified E03.[address] [id number] 07/08/2024 MILES PHILLIPS Hyperlipidemia, unspecified E78.5 ; Essential (primary) hypertension I10 ; Leukocytosis, unspecified type D72.829 ; Mixed anxiety and depressive disorder F41.8 and Prediabetes R73.[address] [id number] 08/13/2024 MILES PHILLIPS Essential (primary) hypertension I10 and Mixed anxiety and depressive disorder F41.[address] [id number] 08/27/2024 MILES PHILLIPS Mixed anxiety and depressive disorder F41.8 ; Essential (primary) hypertension I10 and Hypothyroidism, unspecified E03.[address] [id number] 08/31/2024 MILES PHILLIPS Mixed anxiety and depressive disorder F41.[address] [id number] 09/16/2024 MILES PHILLIPS Mixed anxiety and depressive disorder F41.8 ; Essential (primary) hypertension I10 and Vitamin D deficiency, unspecified E55.[address] [id number] 09/22/2024 MILES PHILLIPS Essential (primary) hypertension I10 and Mixed anxiety and depressive disorder F41.[address] [id number] 09/22/2024 MILES HELLIWELL Mixed anxiety and depressive disorder F41.8 [facility] [address] [place], [place] [id number] 09/29/2024 MILES HELLIWELL Mixed anxiety and depressive disorder F41.[address] [id number] 10/12/2024 MILES HELLIWELL Mixed anxiety and depressive disorder F41.8 and Essential (primary) hypertension I10 [address] [id number] 10/29/2024 MILES HELLIROBSON Major depressive disorder with current active episode, unspecified depression episode severity, unspecified whether recurrent F32.9 and Essential (primary) hypertension I10 [address] [id number] 11/12/2024 MILES HELLIWELL Mixed anxiety and depressive disorder F41.8 ; Essential (primary) hypertension I10 and Hypothyroidism, unspecified E03.[address] [id number] 12/03/2024 MILES HELLIWELL Essential (primary) hypertension I10 and Mixed anxiety and depressive disorder F41.[address] [id number] 12/21/2024 MILES HELLIWELL Essential (primary) hypertension I10 and Mixed anxiety and depressive disorder F41.8 [facility] [address] [place], [place] [id number] 09/24/2024 MILES HELLIWELL Mixed anxiety and depressive disorder F41.8 ASSESSMENTS Encounter Date Diagnosis Assessment Notes Treatment Notes Treatment Clinical Notes Section Notes 06/25/2024 Vitamin D deficiency, unspecified (ICD-10 - E55.9) Was told vitamin d was low and 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 06/25/2024 Hyperlipidemia, unspecified (ICD-10 - E78.5) Pt does not have labs from [facility] Unsure of staying, see below 07/08/2024 Hyperlipidemia, unspecified (ICD-10 - E78.5) Noted lipids were not fasting Will need to repeat full panel with apo levels Pt leads mostly healthy lifestyle 07/08/2024 Essential (primary) hypertension (ICD-10 - I10) Suboptimal control Discussed use of propranolol as not agent Will adjust POC when pt is a part time pt of [facility] as she is going to [place] one more time 08/13/2024 Essential (primary) hypertension [...] whether she is going to stay with [facility] or [place] at this time Due to her anxiety, [...] Insured Coverage Start Date Coverage End Date [facility] [address] [place] [address] [id number] DARREL SOLORZANO Self - patient is the insured MEDICAL (GENERAL) HISTORY Medical History History ICD Code Anxiety Depression Hypertension Thyroid Nodule 1/2 removed 20+ years ago Chicken Pox as a child Surgical History Surgery Date(Month/Year) Thyroid Nodule 2003 Vaginal Ablasion 2002
--- OUTSIDE RECORDS SUMMARY | 2025-01-05 15:20 | XMS_ITS ---
Author Organization [facility] Address [address] [place] [phone] Care Team Providers Care Executive Director Of Nursing Name Role Phone CHAO CARNEY Primary Care Provider [phone] MILES PHILLIPS Unavailable [phone] REASON FOR VISIT f/u meds & wellness [...] a day PRN Not-Taking Cholecalciferol 1.25 MG (45316 UT) 1 capsule Orally once a week [...] smoker (10-19 cigs/day) Section Notes: Lives in [place], [place] VITAL SIGNS Blood pressure systolic 158 mm Hg 12/03/19 25 Blood pressure diastolic 92 mm Hg 025 Heart Rate 92 /min 12/03/2024 Oximetry 97 % 12/03/2024 Weight 123.0 lbs 12/03/2024 Weight-kg 55.79 kg 12/03/2024 Height 62.5 in 12/03/2024 Height-cm 158.75 cm 12/03/2024 BMI 22.14 kg/m2 12/03/2024 Encounters Encounter Location Date Provider Diagnosis [address] [id number] 12/03/2024 MILES PHILLIPS Essential (primary) hypertension I10 [...] Notes * MEENAKSHILIVEMOIZ NUBIAB:1960 (63 yo F)Acc No.[id number]:12/03/2024 Progress Notes Patient:??AGNES SOLORZANO Provider:??MILES PHILLIPS NP :1960?Age:63 Y?Sex:Fe male Date:12/03/2024 Phone: Address:[address] [place] [address], [place], [place] Pcp:CHAO CARNEY Subjective: * Chief Complaints: * ?F/u meds & wellness * HPI: ?Patient Care Team:? Providers/Specialist: Spiritual Counselor - Kimi Bautista ?Therapist: [facility]. ?Visit info:? Agnes presents today for [...] in the HPI. * Medical History:?? 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 Occupation: retired. ?Lives in [place], [place]. * Medications:??TakingVitamin D (Cholecalciferol) 50 MCG [...] Twice a day As neededCholecalciferol 1.25 MG (88221 UT) Capsule 1 capsule Orally once a [...] a day As neededNot-Taking Cholecalciferol 1.25 MG (52559 UT) Capsule 1 capsule Orally once a [...] call) * Billing Information: * Visit Code:?? 02057 Office Visit, Est Pt., Level 4. * Procedure Codes:?? * Sign off status: Completed true * Provider:??MILES PHILLIPS NP Date:?? History and Physical Notes * HPI (History of Present Illness) Category Sub-Category Detail Notes Category Not es Patient Care Team Providers/Specialist: Spiritual Counselor - Kimi Bautista Therapist: Briana Hagan [facility] Examination Category Sub-Category Detail Notes Category Not es General Examination GEN: NAD, speaking in full complete sentences, thoughts clear and appropriate RESP: nonlabored breathing, lungs clear/equal all maria CV: S1S2 regular NEURO: AO x 3 PSYCH: judgment/insight intact, NL mood/affect
--- OUTSIDE RECORDS SUMMARY | 2025-01-05 15:20 | XMS_ITS ---
Author Organization [facility] Address [address] [place] [phone] Care Team Providers Care Fitness And Wellness Instructor Name Role Phone CHAO CARNEY Primary Care Provider MILES PHILLIPS Unavailable [phone] ALLERGIES Allergen (clinical drug ingredient) Drug/Non Drug [...] a day PRN Not-Taking Cholecalciferol 1.25 MG (91080 UT) 1 capsule Orally once a week [...] smoker (10-19 cigs/day) Section Notes: Lives in [place], [place] VITAL SIGNS Height 62.5 in 12/21/2024 Height-cm 158.75 cm 12/21/2024 Encounters Encounter Location Date Provider Diagnosis [address] [id number] 12/21/2024 MILES PHILLIPS Essential (primary) hypertension I10 [...] Notes * JORGITO SOLORZANOADOB:1960 (63 yo F)Acc No.[id number]:12/21/2024 Progress Note Patient:??DARREL SOLORZANO Provider:??MILES PHILLIPS NP :1960?Age:63 Y?Sex:Fe male Date:12/21/2024 Phone: Address:[address] [place] [address], [place] [facility] [id number] Pcp:CHAO CARNEY Subjective: * Chief Complaints: * [...] in the office. ?-She stopped therapy at [facility] but does continue with her nonpharm coping mechanisms. * Medical History:?? 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 Occupation: retired. ?Lives in [place], [place]. * Medications:??TakingVitamin D (Cholecalciferol) 50 MCG [...] taking, Notes to Pharmacist: PRNCholecalciferol 1.25 MG (91968 UT) Capsule 1 capsule Orally once a week for 4 weeks then 2000 iu dailycloNIDine HCl 0.2 MG Tablet 1 tablet Orally twice a day As neededamLODIPine Besylate , Notes to Pharmacist: 3mg QDNot-Taking LORazepam 0.5 MG Tablet 1 tablet Orally twice a day ordered by [facility]...not taking, Notes to Pharmacist: PRNNot-Taking Cholecalciferol 1.25 MG (18842 UT) Capsule 1 capsule Orally once a [...] ) * Billing Information: * Visit Code:?? 40332 Office Visit, Est Pt., Level 4. * Procedure Codes:?? * Sign off status: Completed true * Provider:??MILES PHILLIPS NP Date:?? History and Physical Notes * HPI (History of Present Illness) Category Sub-Category Detail Notes Category Not es Patient Care Team Providers/Specialist: Spiritual Counselor - Kimi Bautista Therapist: Briana CruzyciatrJoni alicia
--- OUTSIDE RECORDS SUMMARY | 2025-01-05 15:20 | XMS_ITS | Data Portability ---
Author Organization [facility] Address [address] [place] [address] Assessment No assessment recorded. Plan of Treatment Reminders Order Date Submit Date Provider Last Modified By Organization Details Last Modified Time Details Appointments None recorded. Lab rapid strep group A, throat 2022 023 [facility] [address], [address] [place], [address], 3 12:15:09 rapid flu (A+B) 2022 023 [facility], [address] [place], [address], 3 12:15:11 streptococc us group A, culture, throat 2022 023 [facility], [address] [place] [address], [place], [address], 3 08:07:49 Referral None recorded. Procedures None recorded. Surgeries None recorded. Imaging None recorded. Medication Orders benzonatate 200 mg capsule 2022 023 [facility] #0838, [address] [place], [address], 3 12:15:10 prednisone 20 mg tablet 2022 023 [facility] #0838, [address] [place], [address], 12:15:10 albuterol sulfate HFA 90 mcg/actuati on aerosol inhaler 2022 023 [facility] [address] [place], [address], 12:15:10 Allergy Relief (fluticason e) 50 mcg/actuati on nasal spray,suspe nsion 2022 023 [facility] [address] [place], [address], 12:15:10 Patient TargetsNo targets recorded. Patient Instructions Encounter Date Encounter Id Patient Instructions Last Modified By Organization Details Last Modified Time 08/02/2023 [id number] sore throat: car e instructions Not available [...] Range : Negat karin Not Available [facility] ([facility]) [address] [facility], [place], [address], 08/05/2023 08:07:49 08/02/2008/02/2023 rapid flu (A+B) Unknown Analyte negati ve Not Available [facility] [address] [place], [address], 08/02/2023 11:43:20 08/02/2008/02/2023 rapid flu (A+B) Unknown Analyte negati ve Not Available [facility] [address] [place], [address], 08/02/2023 11:43:20 08/02/20 23 08/02/2023 rapid flu (A+B) Unknown Analyte negati ve Not Available [facility] [address] [place] [address], [address], 08/02/2023 11:43:20 08/02/2008/02/2023 rapid flu (A+B) Unknown Analyte yes Not Available [address] [place], [place] [address]em[address] [place] [address], [address], 08/02/2023 11:43:20 08/02/2008/02/2023 rapid strep group A, throa t Unknown Analyte negati ve Not Available [address] [place], [place] [address]em[address] [place] [address], [address], 08/02/2023 11:43:11 08/02/20 23 08/02/2023 rapid strep group A, throa t Unknown Analyte negati ve Not Available [address] [place], [place] [address] [address] [place] [address], [address], 08/02/2023 11:43:11 08/02/2008/02/2023 rapid strep group A, throa t Unknown Analyte yes Not Available [address] [place], [place] [address]em[address] [place] [address], [address], 08/02/2023 11:43:11 Result Notes None recorded. Problems No Known Problems Medical Equipment None Reported. Allergies Allergen ID Allergen Name Allergen Category Reaction Reaction Severity Criticality Documentation Date Start Date Code Code System Note Provider Name and Address Organization Details Recorded Time 794107 Product containin g penicilli n (product) medicatio n Not available Not available Not available 08/02/2023 51334 8001 SNOMED LIVE Flores RA - [facility] 11:43:42 860629 Bactrim medicatio n Not available Not available Not available 08/02/2023 45816 9 RxNorm LIVE Flores [facility] 11:43:48 [...] ) 50 mcg/actuatio n nasal spray,suspen kassie Schriever 1 spray every day by intranasal route [...] Last Updated DateTime 157.48 cm 22.9 kg/m2 56064.0 5 g 0 19 /min 97 % [...] SNOMED-CT Code Diagnosis ICD10 Code Diagnosis Note [id number] [place] [address] [address] 08/02/2023 11:32:51 08/02/2023 12:16:37 Acute pharyngitis 406715336 J02.9 Acute bronchitis 5902878 2 J20.9 Health Concerns Section Related Observation [...] Cedeno NP [address] [place], [address], [place] - [facility] 08/02/2023 12:15:44 OBGyn Episode No OBEpisode recorded.
--- OUTSIDE RECORDS SUMMARY | 2025-01-05 15:20 | XMS_ITS ---
Author Organization [facility] Address [address] [place], [place] [phone] Care Team Providers Care Armored Car Messenger Name Role Phone CHAO CARNEY Primary Care Provider MILES PHILLIPS Unavailable [phone] REASON FOR VISIT f/u meds Encounters Encounter Location Date Provider Diagnosis [facility] [address] [place], [place] [phone] 12/01/2024 MILES PHILLIPS Major depressive disorder with [...] Notes * NUBIA SOLORZANOB:1960 (64 yo F)Acc No.[id number]:12/01/2024 Progress Notes Patient:??DARREL SOLORZANO Provider:??MILES PHILLIPS NP :1960?Age:63 Y?Sex:Fe male Date:12/01/2024 Phone: Address:[address] [place], [place] Pcp:CHAO CARNEY Subjective: * Chief Complaints: * [...]
--- OUTSIDE RECORDS SUMMARY | 2025-01-05 15:20 | XMS_ITS | Clinical Summary ---
Author Organization [facility] Address [address] [place] [address] Care Team Providers Care Geophysical Manager Name Role Phone Khushbu Gonzalez MD Primary Care Provider [phone] Allergies No known active allergies Medications propranoloL [...] 2:00 PM EDT Office Visit Adult Medicine [address] [address] Khushbu Gonzalez MD [address] [place] [address] Health Maintenance Due Date Last Done Comments Breast Cancer Screening 1960 DTaP,Tdap,and Td Vaccines (1 - Tdap) 1978 Cervical Cancer Screening: P ap Smear 1980 Pneumococcal Vaccine: 50+ Years (1 of 1 - PCV) 2009 Zoster Vaccines (1 of 2) 2009 COVID-19 Vaccine ( - 2023-2 5 season) 2024 Influenza Vaccine (#1) 2024 Colorectal Cancer Screening: Colonoscopy 08/22/2024 Depression Screening 08/22/2024 Hepatitis C Screening 08/22/2024 Lung Cancer Screening (Low Dose CT) 08/22/2024 Osteoporosis Screening (Bone Density Screening) 08/22/2024 Social Influencers of Health Screening 08/22/2024 [...] * Annual BMP Blood Test (06/22/2024) Pathologist [facility] Annual BMP Blood Test abstracted Historical Provider HEALTH MAINTENANCE Final Result * (ABNORMAL) Lipid panel (06/22/2024) Pathologist [facility] LDL/HDL Ratio 5(A) 0 - 4 Triglycerides 80 0 - 150 mg/dL Cholesterol 236(A) 0 - 200 mg/dL HDL 50 >=40 mg/dL LDL Cholesterol 170(A) 0 - 100 mg/dL Blood Venous blood specimen / Unknown Historical Provider LAB BLOOD ORDERABLES Tila l Result from Last 3 Months or Most Recently Relevant to Health Maintenance Care Teams Geophysical Manager Relationship Specialty Start Date End Date Khushbu Gonzalez MD PCP - General 06/17/24
[2025-01-10 15:53] LABS: Vitamin D 25-OH, D2 <4 ng/mL; Vitamin D 25-OH, D3 39 ng/mL; Vitamin D 25-OH, Total 39 ng/mL (30-100)
== END 2025-01-05 12:36 | disposition home or self-care (01) ==
LOC: HO.WFDLDS 12:35
PROVIDERS: Visit Provider Internal Medicine
DX: I10 Essential (primary) hypertension (principal); E03.9 Hypothyroidism, unspecified; Z76.89 Persons encountering health services in other specified circumstances; R79.89 Other specified abnormal findings of blood chemistry
CPT/HCPCS: 36415; 80053; 82306; 83036; 84443

== ENCOUNTER 2025-03-14 13:58 | Outpatient (AMB) | payer MEDICARE, SELFPAY ==
--- NOTE | 2025-03-14 14:09 | MHC.PC.OV ---
Vital Signs 03/14/25 14:14 03/14/25 14:19 Height 5 ft 1.81 in Weight 124 lb 8 oz BMI 22.9 BP 164/56 H 152/60 H Blood Pressure Location Rt brachial Rt brachial Position Sitting Sitting Respiration 14 Pulse 111 H Pulse Source Pulse Oximeter Pulse Oximetry (%) 96 Oxygen Delivery Method Room Air Intake Visit Reasons: BP Intake Note: Blood pressure follow up. Currently taking lorazepam 0.5 mg that was prescribed by a psychiatrist in the past due to taking care of her mother and also her dog. Restaurant Shift Leader Required: No Allergies latex Allergy (Severe, Verified 01/03/25 15:32) Difficulty Breathing lisinopril Adverse Reaction (Intermediate, Verified 01/03/25 15:33) Cough penicillin Allergy (Unknown, Uncoded 01/03/25 15:33) Unknown Tobacco use date assessed: 03/14/25 Fall risk assessment: No Falls in past year Last assessed Fall Risk: 03/14/25 Dental Screening Dental Screen Date: 03/14/25 Did you have a dental visit in the last 12 months?: Yes Did you have a dental problem in the last 6 months where you did not have access to dental care?: No Was dental information given to patient?: Patient has dentist HPI HPI Comments History of Present Illness Details 64 year old female with a past medical history of hypertension, chronic anxiety, hypothyroidism, presenting for follow up CV: On amlodipine 10mg, hctz 12.5mg daily, valsartan 320 daily. BP has been high in the setting of increased anxiety. Denies chest pain, shortness of breath. BH: Was on zoloft, stopped it last week. She was on a low dose of lexapro which was good but when she tried to increase the lexapro and that was too much. Was care giving for her mom now care giving for her sickly dog. Is going to [place] soon for a wedding and has to bring the dog. Anxiety levels have recently increased. Endocrine: On levothyroxine 25 daily. Last TSH wnl. Mammo: Colonoscopy: ROS see HPI PHYSICAL EXAM: GENERAL: Alert and oriented x 3. NAD EYES: EOMI. Anicteric. HENT: Moist mucous membranes. No scleral icterus. No cervical lymphadenopathy. LUNGS: Clear to auscultation bilaterally. CARDIOVASCULAR: Regular rate and rhythm. No murmur. No JVD. ABDOMEN: Soft, non-tender +bs EXTREMITIES: No edema. Non-tender. SKIN: No rashes or lesions. Warm. NEUROLOGIC: No focal neurological deficits. CN II-XII grossly intact PSYCHIATRIC: Cooperative. Appropriate mood and affect [facility] Surgical History History of thyroid surgery Family History Mother HTN (hypertension) Father Bladder cancer Social History Housing: House Patient Tobacco Use Status: Former Tobacco user (quit 04/2024) Cigarette Packs Per Day: 1 Years Smoked: 10 e-Cigarette/Vaping Use: Never Used Second Hand Smoke Exposure: No service: No Current occupational status: retired Cognitive needs: No Hearing needs: No Vision needs: No Questionnaire PHQ-9 Over the last 2 weeks, how often have you been bothered by any of the following problems? 1. Little interest or pleasure in doing things: not at all 2. Feeling down, depressed, or hopeless: not at all 3. Trouble falling or staying asleep, or sleeping too much: not at all 4. Feeling tired or having little energy: not at all 5. Poor appetite or overeating: not at all 6. Feeling bad about yourself - or that you are a failure or have let yourself or your family down: not at all 7. Trouble concentrating on things, such as reading the newspaper or watching television: not at all 8. Moving or speaking so slowly that other people could have noticed. Or the opposite - being so fidgety or restless that you have been moving around a lot more than usual: not at all 9. Thoughts that you would be better off or of hurting yourself in some way: not at all Total score: 0 Depression Screening Interpretation: Negative Depression Screening Done: Yes 80354 - PHQ-9 Billing: Yes Source: Developed by Drs. Buck Givens, Abril Rivera, Zander Benavidez and colleagues, with an educational marry from [employer]. Thrive Questionnaire Date Thrive assessed: 01/03/25 I am a: Patient What is your living situation today?: I have a steady place to live Within the past 12 months, did the food you bought not last and you didn't have the money to get more?: Never true Within the past 12 months, did you worry whether your food would run out before you got money to buy more?: Never true Do you have trouble paying for medicines?: No Do you have trouble getting transportation to medical appointments?: No Do you have trouble paying your heating and electricity bill?: No Do you have trouble taking care of your child, family member or friend?: No Do you have trouble with day-to-day activities such as bathing, preparing meals, shopping, managing finances, etc.?: No Are you currently unemployed and looking for a job?: No Are you interested in more education?: No Please select the resources that you would like help with: None Currently or been in a relationship where the following occur: No concerns reported THRIVE Score: 0 AUDIT C Alcohol Use Questionnaire (AUDIT-C) 1. How often do you have a drink containing alcohol?: Monthly or less 2. How many drinks containing alcohol do you have on a typical day when you are drinking?: 1 or 2 3. How often do you have six or more drinks on one occasion?: Never Total Score: 1 Physical exam (Primary Care) Vital Signs: Last Vital Signs Pulse 111 H 03/14/25 14:14 Resp 14 03/14/25 14:14 BP 152/60 H 03/14/25 14:19 Pulse Ox 96 03/14/25 14:14 Oxygen Delivery Method Room Air 03/14/25 14:14 BMI result Body Mass Index 22.9 Tobacco/Smoking Status: Tobacco use Status Tobacco use date assessed 03/14/25 03/14/25 14:14 Patient Tobacco Use Status Former Tobacco user (quit 03/14/25 14:11 2023) e-Cigarette/Vaping Use Never Used 03/14/25 14:11 PHQ-9: PHQ-9 Score PHQ-9: Total score 0 03/14/25 14:45 Depression Screening Interpretation: Negative Thrive Assessment: Date of Thrive Assessment Date Thrive assessed 01/03/25 03/14/25 14:11 Currently or been in a relationship where the following occur: No concerns reported Coding Level of Care Code Est Pt Level 4 (35552) Diagnoses Primary hypertension I10 Hypertension type: primary hypertension Anxiety F41.9 Additional Codes PHQ-9 - 14915 - PHQ-9 Billing: Yes ([id number]) Assessment & Plan Assessment & Plan (1) Hypertension: Code(s): I10 - Essential (primary) hypertension Category: Medical Qualifiers: Hypertension type: primary hypertension Qualified Code(s): I10 - Essential (primary) hypertension (2) Anxiety: Code(s): F41.9 - Anxiety disorder, unspecified Category: Medical Plan Hypertension-Blood pressure has been high in setting of increased anxiety. Last BP here was normal. elevated today. Fluctuates at home. Add propranolol 60mg ER daily. Her lorazapem is refilled Medications: New propranolol ER 60 mg PO DAILY 90 caps 3RF lorazepam 0.5 mg PO BID PRN 60 tabs 0RF anxiety
[2025-03-14 14:14] VITALS: BP 164/56; PULSE 111; RESP 14; O2SAT 96; BMI 22.9
[2025-03-14 14:19] VITALS: BP 152/60
--- OUTSIDE RECORDS SUMMARY | 2025-03-14 15:36 | XMS_ITS | Patient Health Record ---
Author Organization [facility] Address [address] [place] [phone] Care Team Providers Care Glazier Metal Furniture Name Role Phone VERONICA CARNEYFER Primary Care Provider [phone] MILES PHILLIPS Unavailable [phone] ALLERGIES Allergen (clinical drug ingredient) Drug/Non Drug [...] a day PRN Not-Taking Cholecalciferol 1.25 MG (24918 UT) 1 capsule Orally once a week [...] smoker (10-19 cigs/day) Section Notes: [place] in [place], [place] PROBLEMS Problem Type ICD Code Onset Dates Problem Status W/U Status Risk SNOMED Code Notes Problem Hypothyroidism, unspecified (E03.9) Active confirmed Hypothyroidism (19926463) Problem Vitamin D deficiency, unspecified (E55.9) Active confirmed Vitamin D deficiency (63098092) Problem Hyperlipidemia, unspecified (E78.5) Active confirmed Hyperlipidemia (45142422) Problem Essential (primary) hypertension (I10) Active confirmed Essential hypertension (06717960) Problem Prediabetes (R73.03) Active confirmed Prediabetes (857788818) Problem Mixed anxiety and depressive disorder (F41.8) Active confirmed Mixed anxie ty and depressive disorder (728949077) Problem Leukocytosis, unspecified type (D72.829) Active confirmed Leukocytosis (431096095) Problem Major depressive disorder with current active episode, unspecified depression episode severity, unspecified whether recurrent (F32.9) Active confirmed Major depressio n, single episode (64829751) VITAL SIGNS Heart Rate 92 /min 12/03/2024 Oximetry 97 % 12/03/2024 Height-cm 158.75 cm 12/21/2024 Blood pressure diastolic 92 mm Hg 12/03/2024 Weight-kg 55.79 kg 12/03/2024 Height 62.5 in 12/21/2024 Blood pressure systolic 158 mm Hg 12/03/2024 Weight 123.0 lbs 12/03/2024 BMI 22.14 kg/m2 12/03/2024 Encounters Encounter Location Date Provider Diagnosis [facility], [address] [id number] 07/30/2024 MILES [address]IPS [address] [id number] 12/01/2024 MILESMELISSA PHILLIPS Major depressive disorder with current active episode, unspecified depression episode severity, unspecified whether recurrent F32.9 and Essential (primary) hypertension I10 [address] [id number] 06/25/2024 MILES HELJIMBO Hyperlipidemia, unspecified E78.5 ; Vitamin D deficiency, unspecified E55.9 ; Mixed anxiety and depressive disorder F41.8 ; Essential (primary) hypertension I10 and Hypothyroidism, unspecified E03.[address] [id number] 07/08/2024 MILES HELJIMBO Hyperlipidemia, unspecified E78.5 ; Essential (primary) hypertension I10 ; Leukocytosis, unspecified type D72.829 ; Mixed anxiety and depressive disorder F41.8 and Prediabetes R73.[address] [id number] 08/13/2024 MILES HELLIWELL Essential (primary) hypertension I10 and Mixed anxiety and depressive disorder F41.[address] [id number] 08/27/2024 MILES HELJIMBO Mixed anxiety and depressive disorder F41.8 ; Essential (primary) hypertension I10 and Hypothyroidism, unspecified E03.[address] [id number] 08/31/2024 MILESMELISSA PHILLIPS Mixed anxiety and depressive disorder F41.[address] [id number] 09/16/2024 MILES HELLIWELL Mixed anxiety and depressive disorder F41.8 ; Essential (primary) hypertension I10 and Vitamin D deficiency, unspecified E55.[address] [id number] 09/22/2024 MILES HELLIWELL Essential (primary) hypertension I10 and Mixed anxiety and depressive disorder F41.[address] [id number] 09/22/2024 MILES HELLIWELL Mixed anxiety and depressive disorder F41.[address] [id number] 09/29/2024 MILES HELLIWELL Mixed anxiety and depressive disorder F41.8 [facility] [address] [place], [place] [id number] 10/12/2024 MILES HELLIWELL Mixed anxiety and depressive disorder F41.8 and Essential (primary) hypertension I10 [facility] [address] [place], [place] [id number] 10/29/2024 MILES HELLIWELL Major depressive disorder with current active episode, unspecified depression episode severity, unspecified whether recurrent F32.9 and Essential (primary) hypertension I10 [facility] [address] [place] [place], [place] [id number] 11/12/2024 MILES HELLIWELL Mixed anxiety and depressive disorder F41.8 ; Essential (primary) hypertension I10 and Hypothyroidism, unspecified E03.[address] [id number] 12/03/2024 MILES HELLIWELL Essential (primary) hypertension I10 and Mixed anxiety and depressive disorder F41.8 [facility] [address] [place], [place] [id number] 12/21/2024 MILES HELLIWELL Essential (primary) hypertension I10 and Mixed anxiety and depressive disorder F41.[address] [id number] 09/24/2024 MILES HELLIWELL Mixed anxiety and depressive disorder F41.8 ASSESSMENTS Encounter Date Diagnosis Assessment Notes Treatment Notes Treatment Clinical Notes Section Notes 06/25/2024 Vitamin D deficiency, unspecified (ICD-10 - E55.9) Was told vitamin d was low and she is to picker feeder Rx at pharmacy 06/25/2024 Hyperlipidemia, unspecified (ICD-10 - E78.5) [facility] Unsure of staying, see below 07/08/2024 Hyperlipidemia, unspecified (ICD-10 - E78.5) Noted lipids were not fasting Will need to repeat full panel with apo levels Pt leads mostly healthy lifestyle 07/08/2024 Essential (primary) hypertension (ICD-10 - I10) Suboptimal control Discussed use of propranolol as not agent 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 as she is going to [place] one more time 08/13/2024 Essential (primary) hypertension [...] whether she is going to stay with [facility] or [place] at this time Due to her anxiety, [...] Insured Coverage Start Date Coverage End Date HNE 1 [facility] [address] [place] [address] [id number] DARREL SOLORZANO Self - patient is the insured MEDICAL (GENERAL) HISTORY Medical History History ICD Code Anxiety Depression Hypertension Thyroid Nodule / removed 20+ years ago Chicken Pox as a child Surgical History Surgery Date(Month/Year) Thyroid Nodule 2003 Vaginal Ablasion 2002
--- OUTSIDE RECORDS SUMMARY | 2025-03-14 15:36 | XMS_ITS ---
Author Organization [facility], [facility] Address [address], [place] [phone] Care Team Providers Care Checker Cashier Name Role Phone CHAO CARNEY Primary Care Provider MILES PHILLIPS Unavailable [phone] REASON FOR VISIT f/u meds Encounters Encounter Location Date Provider Diagnosis [facility] [address], [place] [phone] 12/01/2024 MILES PHILLIPS Major depressive disorder with [...] Notes * NUBIA SOLORZANOB:1960 (64 yo F)Acc No.[id number]:12/01/2024 Progress Notes Patient:??DARREL SOLORZANO Provider:??MILES PHILLIPS NP :1960?Age:63 Y?Sex:Fe male Date:12/01/2024 Phone: Address:[address] [place], [place] Pcp:CHAO CARNEY Subjective: * Chief Complaints: * [...]
--- OUTSIDE RECORDS SUMMARY | 2025-03-14 15:36 | XMS_ITS | Data Portability ---
Author Organization [email or web address], [facility] Address [address] [place] [address] Assessment No assessment recorded. Plan of Treatment Reminders Order Date Submit Date Provider Last Modified By Organization Details Last Modified Time Details Appointments None recorded. Lab rapid strep group A, throat 2022 023 [facility] [address], [address] [place], [address], 3 12:15:09 rapid flu (A+B) 2022 023 [facility], [address] [place], [address], 3 12:15:11 streptococc us group A, culture, throat 2022 023 [facility], [address] [place] [address], [place], [address], 3 08:07:49 Referral None recorded. Procedures None recorded. Surgeries None recorded. Imaging None recorded. Medication Orders benzonatate 200 mg capsule 2022 023 [facility], [address] [place], [address], 3 12:15:10 prednisone 20 mg tablet 2022 023 [facility], [address] [place], [address], 12:15:10 albuterol sulfate HFA 90 mcg/actuati on aerosol inhaler 2022 023 [facility] [address] [place], [address], 12:15:10 Allergy Relief (fluticason e) 50 mcg/actuati on nasal spray,suspe nsion 2022 023 [facility], [address] [place], [address], 12:15:10 Patient TargetsNo targets recorded. Patient Instructions Encounter Date Encounter Id Patient Instructions Last Modified By Organization Details Last Modified Time 08/02/2023 [id number] sore throat: car e instructions Not available [...] Range : Negat karin Not Available [facility] ([facility]) [address] [facility], [place], [address], 08/05/2023 08:07:49 08/02/2008/02/2023 rapid flu (A+B) Unknown Analyte negati ve Not Available [facility] [address] [place], [address], 08/02/2023 11:43:20 08/02/2008/02/2023 rapid flu (A+B) Unknown Analyte negati ve Not Available [facility] [address] [place], [address], 08/02/2023 11:43:20 08/02/20 23 08/02/2023 rapid flu (A+B) Unknown Analyte negati ve Not Available [facility] l[facility] [address] [place] [address], [phone], 08/02/2023 11:43:20 08/02/2008/02/2023 rapid flu (A+B) Unknown Analyte yes Not Available [address] [place], [place] [address]em[address] [place] [address], [address], 08/02/2023 11:43:20 08/02/2008/02/2023 rapid strep group A, throa t Unknown Analyte negati ve Not Available [address] [place], [place] [address]em[address]st [address] [place] [address], [address], 08/02/2023 11:43:11 08/02/20 23 08/02/2023 rapid strep group A, throa t Unknown Analyte negati ve Not Available [address] [place], [place] [address] [address] [place] [address], [address], 08/02/2023 11:43:11 08/02/2008/02/2023 rapid strep group A, throa t Unknown Analyte yes Not Available [address] [place], [place] [address]em[address] [place] [address], [address], 08/02/2023 11:43:11 Result Notes None recorded. Problems No Known Problems Medical Equipment None Reported. Allergies Allergen ID Allergen Name Allergen Category Reaction Reaction Severity Criticality Documentation Date Start Date Code Code System Note Provider Name and Address Organization Details Recorded Time 993202 Product containin g penicilli n (product) medicatio n Not available Not available Not available 08/02/2023 45551 8001 SNOMED LIVE Flores RA - [facility] 11:43:42 154354 Bactrim medicatio n Not available Not available Not available 08/02/2023 46652 9 RxNorm LIVE Flores [facility] 11:43:48 [...] ) 50 mcg/actuatio n nasal spray,suspen kassie Sparkman 1 spray every day by intranasal route [...] Last Updated DateTime 157.48 cm 22.9 kg/m2 96889.0 5 g 0 19 /min 97 % [...] SNOMED-CT Code Diagnosis ICD10 Code Diagnosis [place] [id number] [place] [address] [address] 08/02/2023 11:32:51 08/02/2023 12:16:37 Acute pharyngitis 935913141 J02.9 Acute bronchitis 8240888 2 J20.9 Health Concerns Section Related Observation [...] Cedeno NP [address] [place], [address], [place] - [facility] 08/02/2023 12:15:44 OBGyn Episode No OBEpisode recorded.
--- OUTSIDE RECORDS SUMMARY | 2025-03-14 15:36 | XMS_ITS ---
Author Organization [facility] Address [address] [place] [phone] Care Team Providers Care Ophthalmic Photographer Name Role Phone CHAO CARNEY Primary Care Provider MILES PHILLIPS Unavailable [phone] REASON FOR VISIT f/u meds & wellness [...] a day PRN Not-Taking Cholecalciferol 1.25 MG (15958 UT) 1 capsule Orally once a week [...] smoker (10-19 cigs/day) Section Notes: Lives in [place], [place] VITAL SIGNS Blood pressure systolic 158 mm Hg 12/03/19 25 Blood pressure diastolic 92 mm Hg 025 Heart Rate 92 /min 12/03/2024 Height 62.5 in 12/03/2024 Weight 123.0 lbs 12/03/2024 BMI 22.14 kg/m2 12/03/2024 Oximetry 97 % 12/03/2024 Height-cm 158.75 cm 12/03/2024 Weight-kg 55.79 kg 12/03/2024 Encounters Encounter Location Date Provider Diagnosis [address] [id number] 12/03/2024 MILES PHILLIPS Essential (primary) hypertension I10 [...] Notes * MEENAKSHILIVEMOIZ NUBIAB:1960 (63 yo F)Acc No.[id number]:12/03/2024 Progress Notes Patient:??AGNES SOLORZANO Provider:??MILES PHILLIPS NP :1960?Age:63 Y?Sex:Fe male Date:12/03/2024 Phone: Address:[address] [place] [address], [place], [place] Pcp:CHAO CARNEY Subjective: * Chief Complaints: * ?F/u meds & wellness * HPI: ?Patient Care Team:? Providers/Specialist: Spiritual Counselor - Kimi Bautista ?Therapist: Briana Hagan [facility]. ?Visit info:? Agnes presents today for [...] in the HPI. * Medical History:?? 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 Occupation: retired. ?Lives in [place], [place]. * Medications:??TakingVitamin D (Cholecalciferol) 50 MCG [...] Twice a day As neededCholecalciferol 1.25 MG (02021 UT) Capsule 1 capsule Orally once a [...] a day As neededNot-Taking Cholecalciferol 1.25 MG (84542 UT) Capsule 1 capsule Orally once a [...] call) * Billing Information: * Visit Code:?? 49656 Office Visit, Est Pt., Level 4. * Procedure Codes:?? * Sign off status: Completed true * Provider:??MILES PHILLIPS NP Date:?? History and Physical Notes * HPI (History of Present Illness) Category Sub-Category Detail Notes Category Not es Patient Care Team Providers/Specialist: Spiritual Counselor - Kimi Bautista Therapist: Briana Hagan [facility] alicia Examination Category Sub-Category Detail Notes Category Not es General Examination GEN: NAD, speaking in full complete sentences, thoughts clear and appropriate RESP: nonlabored breathing, lungs clear/equal all maria CV: S1S2 regular NEURO: AO x 3 PSYCH: judgment/insight intact, NL mood/affect
--- OUTSIDE RECORDS SUMMARY | 2025-03-14 15:36 | XMS_ITS ---
Author Organization [facility] [employer] [facility] Address [address] [place] [phone] Care Team Providers Care Building Inspector Name Role Phone CHAO CARNEY Primary Care Provider MILES PHILLIPS Unavailable [phone] ALLERGIES Allergen (clinical drug ingredient) Drug/Non Drug [...] a day PRN Not-Taking Cholecalciferol 1.25 MG (04155 UT) 1 capsule Orally once a week [...] smoker (10-19 cigs/day) Section Notes: Lives in [place], [place] VITAL SIGNS Height 62.5 in 12/21/2024 Height-cm 158.75 cm 12/21/2024 Encounters Encounter Location Date Provider Diagnosis [address] [id number] 12/21/2024 MILES PHILLIPS Essential (primary) hypertension I10 [...] Notes * JORGITO SOLORZANOADOB:1960 (63 yo F)Acc No.[id number]:12/21/2024 Progress Note Patient:??DARREL SOLORZANO Provider:??MILES PHILLIPS NP :1960?Age:63 Y?Sex:Fe male Date:12/21/2024 Phone: Address:[address] [place] [address], [place] [facility] [place], [place] Pcp:CHAO CARNEY Subjective: * Chief Complaints: * [...] in the office. ?-She stopped therapy at [facility] but does continue with her nonpharm coping mechanisms. * Medical History:?? 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 Occupation: retired. ?Lives in [place], [place]. * Medications:??TakingVitamin D (Cholecalciferol) 50 MCG [...] taking, Notes to Pharmacist: PRNCholecalciferol 1.25 MG (09966 UT) Capsule 1 capsule Orally once a week for 4 weeks then 2000 iu dailycloNIDine HCl 0.2 MG Tablet 1 tablet Orally twice a day As neededamLODIPine Besylate , Notes to Pharmacist: 3mg QDNot-Taking LORazepam 0.5 MG Tablet 1 tablet Orally twice a day ordered by [facility]...not taking, Notes to Pharmacist: PRNNot-Taking Cholecalciferol 1.25 MG (64954 UT) Capsule 1 capsule Orally once a [...] ) * Billing Information: * Visit Code:?? 09216 Office Visit, Est Pt., Level 4. * Procedure Codes:?? * Sign off status: Completed true * Provider:??MILES PHILLIPS NP Date:?? History and Physical Notes * HPI (History of Present Illness) Category Sub-Category Detail Notes Category Not es Patient Care Team Providers/Specialist: Spiritual Counselor - Kimi Bautista Therapist: Briana CruzyciatrJoni alicia
== END 2025-03-14 14:33 | disposition home or self-care (01) ==
LOC: HO.HMCFM 13:58
PROVIDERS: PCP Internal Medicine; Visit Provider Internal Medicine
DX: I10 Essential (primary) hypertension (principal); F41.9 Anxiety disorder, unspecified

== ENCOUNTER → 2025-03-14 13:58 | Outpatient (BNVA) | payer MEDICARE, SELFPAY | PROVIDERS: PCP Internal Medicine; Visit Provider Internal Medicine | DX: I10 Essential (primary) hypertension (principal); F41.9 Anxiety disorder, unspecified; E03.9 Hypothyroidism, unspecified; Z79.899 Other long term (current) drug therapy | CPT/HCPCS: 96127; 99212 ==

== ENCOUNTER 2025-03-31 13:36 | Outpatient (AMB) | payer MEDICARE, SELFPAY ==
--- NOTE | 2025-03-31 13:41 | MHC.PC.OV ---
Vital Signs 03/31/25 13:47 Height 5 ft 1.8 in Weight 125 lb BMI 23.0 BP 146/82 H Blood Pressure Location Rt brachial Position Sitting Respiration 12 Pulse 95 Pulse Source Pulse Oximeter Temp 97.8 F Temp Source Temporal Artery Scan Pulse Oximetry (%) 96 Oxygen Delivery Method Room Air Intake Visit Reasons: follow up bp, o'ceballos or figueroa Intake Note: Agnes presents in the office today for a follow up to her blood pressure. Allergies latex Allergy (Severe, Verified 03/31/25 13:44) Difficulty Breathing lisinopril Adverse Reaction (Intermediate, Verified 03/31/25 13:44) Cough penicillin Allergy (Unknown, Uncoded 03/31/25 13:44) Unknown Tobacco use date assessed: 03/31/25 Dental Screening Dental Screen Date: 03/31/25 Did you have a dental visit in the last 12 months?: Yes Did you have a dental problem in the last 6 months where you did not have access to dental care?: No Was dental information given to patient?: Patient has dentist HPI HPI Comments History of Present Illness Details 64-year-old female with hypertension, anxiety and hypothyroidism presents for follow up. She saw her PCP earlier this month. Patient taking amlodipine, valsartan, hydrochlorothiazide and started low-dose propranolol due to increase blood pressure and anxiety. She only started taking it 4 days ago. She denies side effects on this. Her anxiety continues to be problematic. She was on Zoloft, but she stopped it because she did not feel like it was working. She was on Lexapro in the past which helped, but when the dose was increased she could not tolerate it. 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 She is also caring for her dog who has medical issues. She has to miss a wedding in [place] next week because her dog can not travel. Her anxiety level has increased. She is taking lorazepam 0.5 mg twice daily as needed which helps, but she is looking for medication change. A therapist she contacted recently informed her that the patient does not have [facility] so they do not take her insurance. ROS: Constitutional: No fevers or chills Eyes: No vision changes Respiratory: No shortness of breath Cardiovascular: No chest pain Psychiatric: No SI/HI. Physical exam: Constitutional: Alert, in no distress. Respiratory: Clear to auscultation. Cardiovascular: S1 S2 regular. No murmurs. Extremities: Warm and well perfused. No clubbing, cyanosis or edema. Psychiatric: Normal mood and affect [facility] Surgical History History of thyroid surgery Family History Mother HTN (hypertension) Father Bladder cancer Social History (Updated 03/31/25 @ 13:46 by Yesenia Berger MA) Housing: House Alcohol intake: current Patient Tobacco Use Status: Former Tobacco user (quit 04/2024) Cigarette Packs Per Day: 1 Years Smoked: 10 e-Cigarette/Vaping Use: Never Used Second Hand Smoke Exposure: No service: No Current occupational status: retired Cognitive needs: No Hearing needs: No Vision needs: No Questionnaire Thrive Questionnaire Date Thrive assessed: 01/03/25 I am a: Patient What is your living situation today?: I have a steady place to live Within the past 12 months, did the food you bought not last and you didn't have the money to get more?: Never true Within the past 12 months, did you worry whether your food would run out before you got money to buy more?: Never true Do you have trouble paying for medicines?: No Do you have trouble getting transportation to medical appointments?: No Do you have trouble paying your heating and electricity bill?: No Do you have trouble taking care of your child, family member or friend?: No Do you have trouble with day-to-day activities such as bathing, preparing meals, shopping, managing finances, etc.?: No Are you currently unemployed and looking for a job?: No Are you interested in more education?: No Please select the resources that you would like help with: None Currently or been in a relationship where the following occur: No concerns reported THRIVE Score: 0 AUDIT C Alcohol Use Questionnaire (AUDIT-C) 3. How often do you have six or more drinks on one occasion?: Never Total Score: 0 Physical exam (Primary Care) Vital Signs: Last Vital Signs Temp 97.8 F 03/31/25 13:47 Pulse 95 03/31/25 13:47 Resp 12 03/31/25 13:47 BP 146/82 H 03/31/25 13:47 Pulse Ox 96 03/31/25 13:47 Oxygen Delivery Method Room Air 03/31/25 13:47 BMI result Body Mass Index 23.0 Tobacco/Smoking Status: Tobacco use Status Tobacco use date assessed 03/31/25 03/31/25 13:54 Patient Tobacco Use Status Former Tobacco user (quit 03/31/25 13:46 2023) e-Cigarette/Vaping Use Never Used 03/31/25 13:46 Thrive Assessment: Date of Thrive Assessment Date Thrive assessed 01/03/25 03/31/25 13:42 Currently or been in a relationship where the following occur: No concerns reported Coding Level of Care Code Est Pt Level 4 (24262) Complex EM visit Add On G2211 Diagnoses Primary hypertension I10 Hypertension type: primary hypertension Anxiety F41.9 Assessment & Plan Assessment & Plan (1) Hypertension: Code(s): I10 - Essential (primary) hypertension Category: Medical Qualifiers: Hypertension type: primary hypertension Qualified Code(s): I10 - Essential (primary) hypertension (2) Anxiety: Code(s): F41.9 - Anxiety disorder, unspecified Category: Medical Plan Uncontrolled anxiety likely contributing to elevated blood pressure. She also only started propranolol 4 days ago. She will continue 60 mg daily and continue her other medications. We discussed medication options for anxiety including trial of a different SSRI, SNRI and buspirone. Ultimately we decided to try buspirone 5 mg twice daily. Side effects and warnings reviewed. Referral placed to Psychology for therapy. Patient will call the office if she has any difficulty with the medication or otherwise follow up in 4 weeks for a medication check. Orders: Referrals Psychology Referral F41.9 - Anxiety disorder, unspecified Medications: New buspirone 5 mg PO BID 60 tabs 1RF
--- OUTSIDE RECORDS SUMMARY | 2025-03-31 13:45 | XMS_ITS | Data Portability ---
Author Organization [facility], [address] Address [address] [place] [address] Assessment No assessment recorded. Plan of Treatment Reminders Order Date Submit Date Provider Last Modified By Organization Details Last Modified Time Details Appointments None recorded. Lab rapid strep group A, throat 2022 023 [facility], [address] [place], [address], 3 12:15:09 rapid flu (A+B) 2022 023 [facility], [address] [place], [address], 3 12:15:11 streptococc us group A, culture, throat 2022 023 [place] [facility], [address] [place] [address], [place], [address], 3 08:07:49 Referral None recorded. Procedures None recorded. Surgeries None recorded. Imaging None recorded. Medication Orders benzonatate 200 mg capsule 2022 023 [facility], [address] [place], [address], 3 12:15:10 prednisone 20 mg tablet 2022 023 [facility]08[facility], [address] [place], [address], 12:15:10 albuterol sulfate HFA 90 mcg/actuati on aerosol inhaler 2022 023 [facility] [address] [place], [address], 12:15:10 Allergy Relief (fluticason e) 50 mcg/actuati on nasal spray,suspe nsion 2022 023 [facility] [address] [place], [address], 12:15:10 Patient TargetsNo targets recorded. Patient Instructions Encounter Date Encounter Id Patient Instructions Last Modified By Organization Details Last Modified Time 08/02/2023 [id number] sore throat: car e instructions Not available [...] Range : Negat karin Not Available [facility] ([facility]) [address] [facility], [place], [address], 08/05/2023 08:07:49 08/02/2008/02/2023 rapid flu (A+B) Unknown Analyte negati ve Not Available [facility] [address] [place], [address], 08/02/2023 11:43:20 08/02/2008/02/2023 rapid flu (A+B) Unknown Analyte negati ve Not Available [facility] [address] [place], [address], 08/02/2023 11:43:20 08/02/20 23 08/02/2023 rapid flu (A+B) Unknown Analyte negati ve Not Available [facility] [address] [place] [address], [phone], 08/02/2023 11:43:20 08/02/2008/02/2023 rapid flu (A+B) Unknown Analyte yes Not Available [address] [place], [place] [address] [place] [address], [address], 08/02/2023 11:43:20 08/02/2008/02/2023 rapid strep group A, throa t Unknown Analyte negati ve Not Available [address] [place], [place] [address]em[address] [place] [address], [address], 08/02/2023 11:43:11 08/02/20 23 08/02/2023 rapid strep group A, throa t Unknown Analyte negati ve Not Available [address] [place], [place] [address] [address] [place] [address], [phone], 08/02/2023 11:43:11 08/02/2008/02/2023 rapid strep group A, throa t Unknown Analyte yes Not Available [address] [place], [place] [address] [place] [address], [phone], 08/02/2023 11:43:11 Result Notes None recorded. Problems No Known Problems Medical Equipment None Reported. Allergies Allergen ID Allergen Name Allergen Category Reaction Reaction Severity Criticality Documentation Date Start Date Code Code System Note Provider Name and Address Organization Details Recorded Time 955282 Product containin g penicilli n (product) medicatio n Not available Not available Not available 08/02/2023 41852 8001 SNOMED LIVE Flores [facility] 11:43:42 092697 Bactrim medicatio n Not available Not available Not available 08/02/2023 47957 9 RxNorm LIVE Flores RAum [facility] 11:43:48 Medications Name Sig Start Date [...] ) 50 mcg/actuatio n nasal spray,suspen kassie [place] 1 spray every day by intranasal route in the morning for 30 days. 2022 active Not Available Not Available Not Avai lable Vitals Date Recorded Body height Body mass index (BMI) Body weight Respiratory rate Oxygen saturation Oxygen saturation in Arterial blood by Pulse oximetry Heart rate Body temperature Systolic blood pressure Diastolic blood pressure Provider Name and Address Organization Details Last Updated DateTime 157.48 cm 22.9 kg/m2 07754.0 5 g 19 /min 97 % 97 % 77 /min 98.7 [degF] 159 mm[Hg] 99 mm[Hg] KYRA Guillaume [facility] 11:46:49 Social History Question Answer Notes LastModified by Organizat ion Details LastModified Time Tobacco Smoking Status Current Every Day Smoker [facility] 08/02/2023 11:44:17 Have You Had A Flu Shot This Season? No Information not available 08/02/2023 If No, Would You Like A Flu Shot Today? No Information not available 08/02/2023 How Much Tobacco Do You Smoke? 0.5 PPD Information not available 08/02/2023 Sex: Unknown Functional Status Question Answer Note LastModified by Organizat ion Details LastModified Time Do you use any illicit or recreational drugs? No Information not available 08/02/2023 What is your level of alcohol consumption? None Information not available 08/02/2023 Mental Status None recorded. Family History Relationship [...] SNOMED-CT Code Diagnosis ICD10 Code Diagnosis Note [id number] [place] [address] [address] 08/02/2023 11:32:51 08/02/2023 12:16:37 Acute pharyngitis 465539716 J02.9 Acute bronchitis 5648173 2 J20.9 Health Concerns Section Related Observation LastModified by Organization Detai ls LastModified Time None Recorded Concern Status LastModified by Organization Details LastModified Time None Recorded Advance Directives Directive None Recorded Payers Insurance Date Sequence Insurance Name Policy Number Policy [...] Cedeno NP [address] [place], [address], [place] - [facility] 08/02/2023 12:15:44 OBGyn Episode No OBEpisode recorded.
[2025-03-31 13:47] VITALS: BP 146/82; PULSE 95; RESP 12; TEMP 36.6; O2SAT 96; BMI 23.0
== END 2025-03-31 14:17 | disposition home or self-care (01) ==
LOC: HO.HMCFM 13:37
PROVIDERS: PCP Internal Medicine; Visit Provider Physician Assistant Medical
DX: I10 Essential (primary) hypertension (principal); F41.9 Anxiety disorder, unspecified

== ENCOUNTER → 2025-03-31 13:36 | Outpatient (BNVA) | payer MEDICARE, SELFPAY | PROVIDERS: PCP Internal Medicine; Visit Provider Physician Assistant Medical | DX: I10 Essential (primary) hypertension (principal); F41.9 Anxiety disorder, unspecified; E03.9 Hypothyroidism, unspecified; Z79.899 Other long term (current) drug therapy | CPT/HCPCS: 99212 ==

== ENCOUNTER 2025-05-02 15:13 | Outpatient (AMB) | payer MEDICARE, SELFPAY ==
--- NOTE | 2025-05-02 15:24 | A.OFFPC_ITS ---
Vital Signs 05/02/25 15:32 05/02/25 15:38 Weight 123 lb 4 oz BP 160/94 H 148/94 H Blood Pressure Location Rt brachial Lt brachial Position Sitting Sitting Respiration 12 Pulse 63 Pulse Source Pulse Oximeter Pulse Oximetry (%) 99 Oxygen Delivery Method Room Air Intake Visit Reasons: anxiety/BP Intake Note: Anxiety and blood pressure follow up [employer] Required: No Allergies latex Allergy (Severe, Verified 05/02/25 15:24) Difficulty Breathing lisinopril Adverse Reaction (Intermediate, Verified 05/02/25 15:24) Cough penicillin Allergy (Unknown, Uncoded 05/02/25 15:24) Unknown Tobacco use date assessed: 05/02/25 Fall risk assessment: No Falls in past year Dental Screening Dental Screen Date: 03/31/25 HPI HPI Comments History of Present Illness Details 64 year old female with a past medical h istory of hypertension, chronic anxiety, hypothyroidism, presenting for follow up CV: On amlodipine 10mg, hctz 12.5mg daily, valsartan 320 daily. BP has been high in the setting of increased anxiety. Denies chest pain, shortness of breath. BH: Was on zoloft, was on a low dose of lexapro which was good but when she tried to increase the lexapro and that was too much. Was care giving for her mom now care giving for her sickly dog. Saw my colleague and was started on buspar. She continues on proranolol.There was some mild improvement Endocrine: On levothyroxine 25 daily. Last TSH wnl. Mammo: Colonoscopy: ROS see HPI PHYSICAL EXAM: GENERAL: Alert and oriented x 3. NAD EYES: EOMI. Anicteric. HENT: Moist mucous membranes. No scleral icterus. No cervical lymphadenopathy. LUNGS: Clear to auscultation bilaterally. CARDIOVASCULAR: Regular rate and rhythm. No murmur. No JVD. ABDOMEN: Soft, non-tender +bs EXTREMITIES: No edema. Non-tender. SKIN: No rashes or lesions. Warm. NEUROLOGIC: No focal neurological deficits. CN II-XII grossly intact PSYCHIATRIC: Cooperative. Appropriate mood and affect [facility] Surgical History History of thyroid surgery Family History Mother HTN (hypertension) Father Bladder cancer Social History Housing: House Alcohol intake: current Patient Tobacco Use Status: Former Tobacco user (quit 04/2024) Cigarette Packs Per Day: 1 Years Smoked: 10 e-Cigarette/Vaping Use: Never Used Second Hand Smoke Exposure: No service: No Current occupational status: retired Cognitive needs: No Hearing needs: No Vision needs: No Questionnaire Thrive Questionnaire Date Thrive assessed: 01/03/25 I am a: Patient What is your living situation today?: I have a steady place to live Within the past 12 months, did the food you bought not last and you didn't have the money to get more?: Never true Within the past 12 months, did you worry whether your food would run out before you got money to buy more?: Never true Do you have trouble paying for medicines?: No Do you have trouble getting transportation to medical appointments?: No Do you have trouble paying your heating and electricity bill?: No Do you have trouble taking care of your child, family member or friend?: No Do you have trouble with day-to-day activities such as bathing, preparing meals, shopping, managing finances, etc.?: No Are you currently unemployed and looking for a job?: No Are you interested in more education?: No Please select the resources that you would like help with: None Currently or been in a relationship where the following occur: No concerns reported THRIVE Score: 0 Physical exam (Primary Care) Vital Signs: Last Vital Signs Pulse 63 05/02/25 15:32 Resp 12 05/02/25 15:32 BP 148/94 H 05/02/25 15:38 Pulse Ox 99 05/02/25 15:32 Oxygen Delivery Method Room Air 05/02/25 15:32 Tobacco/Smoking Status: Tobacco use Status Tobacco use date assessed 05/02/25 05/02/25 15:25 Patient Tobacco Use Status Former Tobacco user (quit 05/02/25 15:41 2023) e-Cigarette/Vaping Use Never Used 05/02/25 15:41 Thrive Assessment: Date of Thrive Assessment Date Thrive assessed 01/03/25 05/02/25 15:25 Currently or been in a relationship where the following occur: No concerns reported Coding Level of Care Code Est Pt Level 4 (73482) Diagnoses Anxiety F41.9 Primary hypertension I10 Hypertension type: primary hypertension Hypothyroidism, unspecified type E03.9 Hypothyroidism type: unspecified Assessment & Plan Assessment & Plan (1) Anxiety: Code(s): F41.9 - Anxiety disorder, unspecified Category: Medical (2) Hypertension: Code(s): I10 - Essential (primary) hypertension Category: Medical Qualifiers: Hypertension type: primary hypertension Qualified Code(s): I10 - Essential (primary) hypertension (3) Hypothyroid: Code(s): E03.9 - Hypothyroidism, unspecified Category: Medical Qualifiers: Hypothyroidism type: unspecified Qualified Code(s): E03.9 - Hypothyroidism, unspecified Plan 64 year old for follow up Continued anxiety-restart lexap. continue buspar, propranolol ativan BP is still running borderline high. Will add bp med if still high at next visit Medications: New buspirone 10 mg PO BID 180 tabs 3RF escitalopram oxalate Take 1/2 tab oral once daily for one week then increase to one tablet oral daily 10 mg PO DAILY 90 tabs 3RF Discontinued buspirone Discontinued Reason: Doctor's Order 5 mg PO BID 180 tabs 1RF
[2025-05-02 15:32] VITALS: BP 160/94; PULSE 63; RESP 12; O2SAT 99
[2025-05-02 15:38] VITALS: BP 148/94
--- OUTSIDE RECORDS SUMMARY | 2025-05-02 16:45 | XMS_ITS | Data Portability ---
Author Organization [facility], [address] Address [address] [place] [address] Assessment No assessment recorded. Plan of Treatment Reminders Order Date Submit Date Provider Last Modified By Organization Details Last Modified Time Details Appointments None recorded. Lab rapid strep group A, throat 2022 023 [facility], [address] [place], [address], 3 12:15:09 rapid flu (A+B) 2022 023 [facility], [address] [place], [address], 3 12:15:11 streptococc us group A, culture, throat 2022 023 [facility], [address] [place] [address], [place], [address], 3 08:07:49 Referral None recorded. Procedures None recorded. Surgeries None recorded. Imaging None recorded. Medication Orders benzonatate [address] [facility]0881, [address] [place], [address], 3 12:15:10 prednisone [address] [facility]0838, [address] [place], [address], 12:15:10 albuterol sulfate HFA 90 mcg/actuati on aerosol inhaler [address] [facility]0838, [address] [place], [address], 12:15:10 Allergy Relief (fluticason e) 50 mcg/actuati on nasal spray,suspe nsion [address] [facility]0838, [address] [place], [address], 12:15:10 Patient TargetsNo targets recorded. Patient Instructions Encounter Date Encounter Id Patient Instructions Last Modified By Organization Details Last Modified Time 08/02/2023 [id number] sore throat: car e instructions marcel Not available 08/02/2023 12:15:06 Use over the [...] visit to the nearest Emergency Department. . marcel Not available 08/02/2023 12:15:03 Patient instruct ed [...] Range : Negat karin Not Available [facility] ([facility]) [address] [facility], [place], [address], 08/05/2023 08:07:49 08/02/2008/02/2023 rapid flu (A+B) Unknown Analyte negati ve Not Available ie [address], [address], 08/02/2023 11:43:20 08/02/2008/02/2023 rapid flu (A+B) Unknown Analyte negati ve Not Available [facility] [address] [place] [address], [address], 08/02/2023 11:43:20 08/02/2008/02/2023 rapid flu (A+B) Unknown Analyte negati ve Not Available [facility] ie [address] [address] [place] [address], [phone], 08/02/2023 11:43:20 08/02/2008/02/2023 rapid flu (A+B) Unknown Analyte yes Not Available [facility] [address] [place] [address], [phone], 08/02/2023 11:43:20 08/02/2008/02/2023 rapid strep group A, throa t Unknown Analyte negati ve Not Available [address] [place], [place] [address] [address] [place] [address], [phone], 08/02/2023 11:43:11 08/02/2008/02/2023 rapid strep group A, throa t Unknown Analyte negati ve Not Available [address] [place], [place] [address] [address] [place] [address], [address], 08/02/2023 11:43:11 08/02/20 23 08/02/2023 rapid strep group A, throa t Unknown Analyte yes Not Available [address] [place], [place] [address] [address] [place] [address], [address], 08/02/2023 11:43:11 Result Notes None recorded. Problems No Known Problems Medical Equipment None Reported. Allergies Allergen ID Allergen Name Allergen Category Reaction Reaction Severity Criticality Documentation Date Start Date Code Code System Note Provider Name and Address Organization Details Recorded Time 782044 Product containin g penicilli n (product) medicatio n Not available Not available Not available 08/02/2023 05734 8001 SNOMED LIVE Flores [facility] 11:43:42 309732 Bactrim medicatio n Not available Not available Not available 08/02/2023 27954 9 RxNorm LIVE Flores RA [facility] 11:43:48 [...] ) 50 mcg/actuatio n nasal spray,suspen kassie [place] 1 spray every day by intranasal route [...] Last Updated DateTime 157.48 cm 22.9 kg/m2 68388.0 5 g 19 /min 97 % 97 % 77 /min 98.7 [degF] 159 mm[Hg] 99 mm[Hg] KYRA [facility] 11:46:49 Social History Question Answer Notes LastModified by Organizat ion Details LastModified Time Tobacco Smoking Status Current Every Day Smoker [facility] 08/02/2023 11:44:17 Have You Had A [...] SNOMED-CT Code Diagnosis ICD10 Code Diagnosis Note [id number] [place] [address] [address] 08/02/2023 11:32:51 08/02/2023 12:16:37 Acute pharyngitis 642245827 J02.9 Acute bronchitis 2558540 2 J20.9 Health Concerns Section Related Observation [...] Name and Address Organization Details Recorded Time text/html Sore throatReported bypatient.Source of patient informationInformation obtained from patient; Patient arrived at Urgent Care ambulatory; learning styles: auditory Location:throat Severity:mild Quality:sharp; burning Onset/Timin days Associated Symptoms:no sputum production; no shortness of breath; no wheezing; no vomiting; no nausea;sore throat;hoarseness;coughing; sinus pain/ congestion Context:no foreign travel; non-smoker;sick contact Modifying Factors:exposed to Strep non household Cole Cedeno NP [address] [place], [address], [place] - [facility] 08/02/2023 12:15:44 OBGyn Episode No OBEpisode recorded.
== END 2025-05-02 16:01 | disposition home or self-care (01) ==
LOC: HO.HMCFM 15:13
PROVIDERS: PCP Internal Medicine; Visit Provider Internal Medicine
DX: F41.9 Anxiety disorder, unspecified (principal); I10 Essential (primary) hypertension; E03.9 Hypothyroidism, unspecified

== ENCOUNTER → 2025-05-02 15:13 | Outpatient (BNVA) | payer MEDICARE, SELFPAY | PROVIDERS: PCP Internal Medicine; Visit Provider Internal Medicine | DX: F41.9 Anxiety disorder, unspecified (principal); I10 Essential (primary) hypertension; E03.9 Hypothyroidism, unspecified; Z79.899 Other long term (current) drug therapy | CPT/HCPCS: 99212 ==

== ENCOUNTER 2025-07-05 11:35 | Outpatient (AMB) | payer MEDICARE, SELFPAY ==
--- NOTE | 2025-07-05 11:55 | A.OFFPC_ITS ---
Vital Signs 07/05/25 12:03 07/05/25 12:10 Height 5 ft 1.8 in Weight 123 lb 2 oz BMI 22.7 BP 156/82 H 158/78 H Blood Pressure Location Rt brachial Rt brachial Position Sitting Sitting Respiration 12 Pulse 56 Pulse Source Pulse Oximeter Pulse Oximetry (%) 100 Oxygen Delivery Method Room Air Intake Visit Reasons: BP follow up Intake Note: Blood pressure follow up. 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 Allergies latex Allergy (Severe, Verified 07/05/25 11:59) Difficulty Breathing lisinopril Adverse Reaction (Intermediate, Verified 07/05/25 11:59) Cough penicillin Allergy (Unknown, Uncoded 07/05/25 11:59) Unknown Tobacco use date assessed: 07/05/25 Fall risk assessment: No Falls in past year Last assessed Fall Risk: 07/05/25 Dental Screening Dental Screen Date: 03/31/25 HPI HPI Comments History of Present Illness Details 64 year old female with a past medical h istory of hypertension, chronic anxiety, hypothyroidism, presenting for follow up CV: On amlodipine 10mg, hctz 12.5mg daily, valsartan 320 daily. Despite restarting ssri bp remains high. Denies chest pain, shortness of breath. BH: Was on zoloft, was on a low dose of lexapro which was good but when she tried to increase the lexapro and that was too much. Was care giving for her mom, then sickly dog. Saw my colleague and was started on buspar. on propranolol. There was some mild improvement Endocrine: On levothyroxine 25 daily. Last TSH wnl. Mammo: Colonoscopy: ROS see HPI PHYSICAL EXAM: GENERAL: Alert and oriented x 3. NAD EYES: EOMI. Anicteric. HENT: Moist mucous membranes. No scleral icterus. No cervical lymphadenopathy. LUNGS: Clear to auscultation bilaterally. CARDIOVASCULAR: Regular rate and rhythm. No murmur. No JVD. ABDOMEN: Soft, non-tender +bs EXTREMITIES: No edema. Non-tender. SKIN: No rashes or lesions. Warm. NEUROLOGIC: No focal neurological deficits. CN II-XII grossly intact PSYCHIATRIC: Cooperative. Appropriate mood and affect PFSH Surgical History History of thyroid surgery Family History Mother HTN (hypertension) Father Bladder cancer Social History Housing: House Alcohol intake: current Patient Tobacco Use Status: Former Tobacco user (quit 04/2024) Cigarette Packs Per Day: 1 Years Smoked: 10 e-Cigarette/Vaping Use: Never Used Second Hand Smoke Exposure: No service: No Current occupational status: retired Cognitive needs: No Hearing needs: No Vision needs: No Questionnaire Thrive Questionnaire Date Thrive assessed: 01/03/25 I am a: Patient What is your living situation today?: I have a steady place to live Within the past 12 months, did the food you bought not last and you didn't have the money to get more?: Never true Within the past 12 months, did you worry whether your food would run out before you got money to buy more?: Never true Do you have trouble paying for medicines?: No Do you have trouble getting transportation to medical appointments?: No Do you have trouble paying your heating and electricity bill?: No Do you have trouble taking care of your child, family member or friend?: No Do you have trouble with day-to-day activities such as bathing, preparing meals, shopping, managing finances, etc.?: No Are you currently unemployed and looking for a job?: No Are you interested in more education?: No Please select the resources that you would like help with: None Currently or been in a relationship where the following occur: No concerns reported THRIVE Score: 0 AUDIT C Alcohol Use Questionnaire (AUDIT-C) 1. How often do you have a drink containing alcohol?: Never 3. How often do you have six or more drinks on one occasion?: Never Total Score: 0 Physical exam (Primary Care) Vital Signs: Last Vital Signs Pulse 56 07/05/25 12:03 Resp 12 07/05/25 12:03 BP 158/78 H 07/05/25 12:10 Pulse Ox 100 07/05/25 12:03 Oxygen Delivery Method Room Air 07/05/25 12:03 BMI result Body Mass Index 22.7 Tobacco/Smoking Status: Tobacco use Status Tobacco use date assessed 07/05/25 07/05/25 11:59 Patient Tobacco Use Status Former Tobacco user (quit 07/05/25 11:57 2023) e-Cigarette/Vaping Use Never Used 07/05/25 11:57 Thrive Assessment: Date of Thrive Assessment Date Thrive assessed 01/03/25 07/05/25 11:57 Currently or been in a relationship where the following occur: No concerns reported Coding Level of Care Code Est Pt Level 4 (70344) Diagnoses Primary hypertension I10 Hypertension type: primary hypertension Hypothyroidism, unspecified type E03.9 Hypothyroidism type: unspecified Low vitamin D level R79.89 Anxiety F41.9 Assessment & Plan Assessment & Plan (1) Hypertension: Code(s): I10 - Essential (primary) hypertension Category: Medical Qualifiers: Hypertension type: primary hypertension Qualified Code(s): I10 - Essential (primary) hypertension (2) Hypothyroid: Code(s): E03.9 - Hypothyroidism, unspecified Category: Medical Qualifiers: Hypothyroidism type: unspecified Qualified Code(s): E03.9 - Hypothyroidism, unspecified (3) Low vitamin D level: Code(s): R79.89 - Other specified abnormal findings of blood chemistry Category: Medical (4) Anxiety: Code(s): F41.9 - Anxiety disorder, unspecified Category: Medical Plan 64 yo for fup Hypothyroid stable on levothyroxine Fatigue-labs ordered. Anxiety is stable on lexapro HTN-stop propranolol. start atenolol Orders: Orders Complete Blood Count Auto Diff 07/06/25 E03.9 - Hypothyroidism, unspecified, F41.9 - Anxiety disorder, unspecified, I10 - Essential (primary) hypertension, R53.83 - Other fatigue Comprehensive Met. Panel 07/06/25 E03.9 - Hypothyroidism, unspecified, F41.9 - Anxiety disorder, unspecified, I10 - Essential (primary) hypertension, R53.83 - Other fatigue Vitamin B12 and Folate 07/06/25 R53.83 - Other fatigue Vitamin D 25-OH Total 07/06/25 R53.83 - Other fatigue UA ClnCatch+Micro w/rflx Cult 07/05/25 R53.83 - Other fatigue TSH reflex Free T4 07/06/25 E03.9 - Hypothyroidism, unspecified, F41.9 - Anxiety disorder, unspecified, I10 - Essential (primary) hypertension, R53.83 - Other fatigue Lyme IgG/IgM w/reflex to WB 07/06/25 E03.9 - Hypothyroidism, unspecified, I10 - Essential (primary) hypertension Medications: New atenolol 25 mg PO DAILY 90 tabs 3RF Discontinued propranolol ER Discontinued Reason: Doctor's Order 60 mg PO DAILY 90 caps 3RF
[2025-07-05 12:03] VITALS: BP 156/82; PULSE 56; RESP 12; O2SAT 100; BMI 22.7
[2025-07-05 12:10] VITALS: BP 158/78
== END 2025-07-05 12:21 | disposition home or self-care (01) ==
LOC: HO.HMCFM 11:36
PROVIDERS: PCP Internal Medicine; Visit Provider Internal Medicine
DX: I10 Essential (primary) hypertension (principal); E03.9 Hypothyroidism, unspecified; R79.89 Other specified abnormal findings of blood chemistry; F41.9 Anxiety disorder, unspecified

== ENCOUNTER → 2025-07-05 11:35 | Outpatient (BNVA) | payer MEDICARE, SELFPAY | PROVIDERS: PCP Internal Medicine; Visit Provider Internal Medicine | DX: I10 Essential (primary) hypertension (principal); E03.9 Hypothyroidism, unspecified; E55.9 Vitamin D deficiency, unspecified; F41.9 Anxiety disorder, unspecified; R53.83 Other fatigue; Z79.899 Other long term (current) drug therapy | CPT/HCPCS: 99212 ==

== ENCOUNTER 2025-07-06 11:52 | Outpatient (REF) | payer MEDICARE, SELFPAY ==
[2025-07-06 14:30] LABS: MANUAL DIFF FLAG NO
[2025-07-06 14:33] LABS: Hematocrit 40.6 % (37.0-47.0); Hemoglobin 13.2 g/dl (12.0-16.0); Imm Gran Abs Auto 0.03 X10*3/uL (0.00-0.03); Imm Gran Pct Auto 0.4 % (0.0-0.4); Lymphocytes Absolute Auto 2.8 X10*3/uL (1.2-4.9); Mean Corpuscular HGB Conc 32.5 g/dl (31.0-35.0); Mean Corpuscular Hemoglobin 27.7 pg (27.0-33.0); Mean Corpuscular Volume 85.3 fL (80.0-98.0); NRBC Abs Auto 0.000 X10*3/uL (0.0-0.012); NRBC Pct Auto 0.0 /100WBC (0.0-0.2); Platelet Count 366 X10*3/uL (160-400); Red Blood Count 4.76 X10*6/uL (4.20-5.50); White Blood Count 8.0 X10*3/uL (4.8-10.8)
[2025-07-06 18:43] LABS: Alanine Aminotransferase 28 U/L (0-31); Albumin Level 4.5 g/dL (3.5-5.0); Alkaline Phosphatase 46 U/L (39-117); Anion Gap 14 (12-20); Aspartate Amino Transferase 31 U/L (5-31); Blood Urea Nitrogen 10 mg/dL (9-16); Calcium 9.6 mg/dL (8.4-10.2); Carbon Dioxide 28 mmol/L (22-29); Chloride 102 mmol/L (96-108); Estimated Glomerular Filt Rate > 60; Potassium 4.4 mmol/L (3.3-5.1); Sodium 140 mmol/L (135-145); Total Protein 7.8 g/dL (6.5-8.0)
[2025-07-06 19:02] LABS: Folate 13.4 ng/mL (> or = 4.0); Vitamin B12 1460 pg/mL (200-900)
[2025-07-07 06:43] LABS: Lyme Abs Screen <0.90 index
== END 2025-07-06 11:53 | disposition home or self-care (01) ==
LOC: HO.WFDLDS 11:52
PROVIDERS: Visit Provider Internal Medicine
DX: I10 Essential (primary) hypertension (principal); E03.9 Hypothyroidism, unspecified; F41.9 Anxiety disorder, unspecified; R53.83 Other fatigue; Z01.84 Encounter for antibody response examination
CPT/HCPCS: 36415; 80053; 82306; 82607; 82746; 84443; 85025; 86617; 86618

== ENCOUNTER 2025-07-14 14:30 | Outpatient (REF) | payer MEDICARE, SELFPAY ==
[2025-07-14 18:57] LABS: Appearance Urine Clear; Glucose Urine UA Negative (Negative); PH 5.5 (5.0-9.0); Specific Gravity - Urine <= 1.005 (1.005-1.025)
== END 2025-07-14 14:31 | disposition home or self-care (01) ==
LOC: HO.WFDLDS 14:30
PROVIDERS: Visit Provider Internal Medicine
DX: R53.83 Other fatigue (principal)
CPT/HCPCS: 81001

== ENCOUNTER 2025-08-02 13:24 | Outpatient (AMB) | payer MEDICARE, SELFPAY ==
--- NOTE | 2025-08-02 13:26 | MHC.OFFWIV ---
Intake Vital Signs 08/02/25 13:33 08/02/25 13:57 Height 5 ft 1.8 in Weight 126 lb 4 oz BMI 23.2 BP 164/80 H 156/78 H Blood Pressure Location Lt brachial Lt brachial Position Sitting Sitting Respiration 14 Pulse 93 Pulse Source Pulse Oximeter Temp 97.3 F Temp Source Oral Pulse Oximetry (%) 97 Oxygen Delivery Method Room Air Intake Visit Reasons: High BP 200 over 102 Intake Note: Patient c/o having high blood pressure this morning of 200/102 and she recently just change bp meds. Patient states she took lorazepam before coming in to the visit. 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 Allergies latex Allergy (Severe, Verified 08/02/25 13:50) Difficulty Breathing lisinopril Adverse Reaction (Intermediate, Verified 08/02/25 13:50) Cough penicillin Allergy (Unknown, Uncoded 08/02/25 13:26) Unknown Medication List - Last Reconciled 08/02/25 by Evelyn Garcia, [facility]- amlodipine 10 mg PO DAILY atenolol 25 mg PO DAILY cholecalciferol (vitamin D3) PO escitalopram oxalate 10 mg PO DAILY hydrochlorothiazide 12.5 mg PO DAILY levothyroxine 25 mcg PO DAILY lorazepam 0.5 mg PO BID PRN magnesium 250 mg PO DAILY mecobalamin (vitamin B12) PO DAILY multivitamin 1 tab PO DAILY propranolol ER 60 mg PO DAILY valsartan 320 mg PO DAILY Do you need a note to return to daycare/school/sports/work: No PFSH Surgical History History of thyroid surgery Family History Mother HTN (hypertension) Father Bladder cancer Social History Housing: House Alcohol intake: current Patient Tobacco Use Status: Former Tobacco user (quit 04/2024) Cigarette Packs Per Day: 1 Years Smoked: 10 e-Cigarette/Vaping Use: Never Used Second Hand Smoke Exposure: No service: No Current occupational status: retired Cognitive needs: No Hearing needs: No Vision needs: No Physical Exam Vital Signs: Last Vital Signs Temp 97.3 F 08/02/25 13:33 Pulse 93 08/02/25 13:33 Resp 14 08/02/25 13:33 BP 164/80 H 08/02/25 13:33 Pulse Ox 97 08/02/25 13:33 Oxygen Delivery Method Room Air 08/02/25 13:33 BMI result Body Mass Index 23.2 Assessment & Plan Assessment & Plan (1) Hypertension: Code(s): I10 - Essential (primary) hypertension Qualifiers: Hypertension type: primary hypertension Qualified Code(s): I10 - Essential (primary) hypertension Orders: Orders Basic Metabolic Panel 2 Weeks I10 - Essential (primary) hypertension Medications: Changed From hydrochlorothiazide 12.5 mg PO DAILY To hydrochlorothiazide 12.5 mg PO BID 60 tabs 0RF Coding Diagnoses Primary hypertension I10 Hypertension type: primary hypertension
[2025-08-02 13:33] VITALS: BP 164/80; PULSE 93; RESP 14; TEMP 36.3; O2SAT 97; BMI 23.2
[2025-08-02 13:57] VITALS: BP 156/78
--- NOTE | 2025-08-02 14:13 | A.OFFPC_ITS ---
Vital Signs 08/02/25 13:33 08/02/25 13:57 Height 5 ft 1.8 in Weight 126 lb 4 oz BMI 23.2 BP 164/80 H 156/78 H Blood Pressure Location Lt brachial Lt brachial Position Sitting Sitting Respiration 14 Pulse 93 Pulse Source Pulse Oximeter Temp 97.3 F Temp Source Oral Pulse Oximetry (%) 97 Oxygen Delivery Method Room Air Intake Visit Reasons: High BP 200 over 102 Allergies latex Allergy (Severe, Verified 08/02/25 13:50) Difficulty Breathing lisinopril Adverse Reaction (Intermediate, Verified 08/02/25 13:50) Cough penicillin Allergy (Unknown, Uncoded 08/02/25 13:26) Unknown Medication List - Last Reconciled 08/02/25 by RODOLFO GageP- amlodipine 10 mg PO DAILY atenolol 25 mg PO DAILY cholecalciferol (vitamin D3) PO escitalopram oxalate 10 mg PO DAILY hydrochlorothiazide 12.5 mg PO DAILY levothyroxine 25 mcg PO DAILY lorazepam 0.5 mg PO BID PRN magnesium 250 mg PO DAILY mecobalamin (vitamin B12) PO DAILY multivitamin 1 tab PO DAILY propranolol ER 60 mg PO DAILY valsartan 320 mg PO DAILY Tobacco use date assessed: 07/05/25 Dental Screening Dental Screen Date: 03/31/25 HPI HPI Comments History of Present Illness Details 64 year old female with a past medical h istory of hypertension, chronic anxiety, hypothyroidism, presenting with concerns regarding uncontrolled hypertension. Hypertension: - Reports persistent hypertension on cur rent medication. - BP recorded at home as 200/102, leadin g to medical consultation. - Medications include valsartan, amlodip ine, hydrochlorothiazide, and atenolol. - Historical BP around 150-160/78, impro adriana to 156/78 during visit. - Experiencing transient dizziness when standing up. - Significant anxiety regarding BP check s. - Managed with lorazepam and Lexapro. Review of Systems - Cardiovascular: Reports hypertension, dizziness upon standing. Denies chest pain, sob. Denies visual changes - Neurological: Reports dizziness. - Psychiatric: Reports anxiety; taking l orazepam and Lexapro. - General: Denies headaches. Physical Exam General: Well developed, well nourished, in no acute distress. Appears stated age. Head: Normocephalic, atraumatic. Eyes: Pupils are equal, round and reactive to light and accommodation. Conjunctivae are clear. Lungs: Clear to auscultation bilaterally. No rales, rhonchi or wheeze noted. Good air flow in all maria. Heart: Regular rate and rhythm. No murmurs, click, rubs or gallops are noted. Extremities: No clubbing, cyanosis nor edema is noted. Psych: Mood and affect appropriate. Discussion Notes I discussed with the patient her current hypertensive status and potential reasons for elevated readings, including medication timing and anxiety influence. We discussed adding an evening dose of hydrochlorothiazide to potentially improve blood pressure control. I outlined the plan to monitor electrolytes due to the potential impact of increased hydrochlorothiazide use. We reviewed the importance of follow-up and agreed to a re-evaluation in two weeks with lab assessments prior. Alternative medication strategies, such as combination therapy, were mentioned to potentially reduce pill burden. Lifestyle modification discussion included the importance of regular monitoring yet not over-analyzing daily changes due to her anxiety symptoms. Continuing Lexapro and lorazepam was encouraged given their effective management of anxiety symptoms. Patient was given time to ask questions. All questions were answered to their satisfaction. Assessment and Plan 1. Hypertension - Increase hydrochlorothiazide to twice daily. Cont all other meds. - Follow up in two weeks; reassess and r epeat labs. 2. Dizziness - Monitor symptoms, likely orthostatic. 3. Anxiety - Continue lorazepam and Lexapro. Patient Instructions - Take your hydrochlorothiazide in the m orning and also in the evening. - Plan to come back for a check-up in tw o weeks. - Don't worry too much if your blood pre ssure changes a little each day. - Keep taking your anxiety medicine Consent Consent was obtained from the patient for the proposed medication changes, with particular attention given to the addition of a second daily dose of hydrochlorothiazide. I explained the benefits of better blood pressure control and discussed potential risks, including changes in electrolytes, which we planned to monitor closely. The patient agreed to the plan and understands the need for follow-up and laboratory monitoring. Consented verbally. Patient was informed and verbally consented to the use of an ambient scribe for clinic note documentation during this visit. Total time spent caring for the patient today was 30 minutes. This includes time spent before the visit reviewing the chart, time spent during the visit, and time spent after the visit on documentation, reviewing laboratory results, diagnostic imaging, medications, performing a medically necessary evaluation, counseling on diagnoses, care coordination, ordering appropriate tests, ordering appropriate medications, review of tests performed by other providers, reporting test results with the patient, communication with other healthcare providers. [facility] Surgical History History of thyroid surgery Family History Mother HTN (hypertension) Father Bladder cancer Social History Housing: House Alcohol intake: current Patient Tobacco Use Status: Former Tobacco user Cigarette Packs Per Day: 1 Years Smoked: 10 e-Cigarette/Vaping Use: Never Used Second Hand Smoke Exposure: No service: No Current occupational status: retired Cognitive needs: No Hearing needs: No Vision needs: No Questionnaire Thrive Questionnaire Date Thrive assessed: 01/03/25 I am a: Patient What is your living situation today?: I have a steady place to live Within the past 12 months, did the food you bought not last and you didn't have the money to get more?: Never true Within the past 12 months, did you worry whether your food would run out before you got money to buy more?: Never true Do you have trouble paying for medicines?: No Do you have trouble getting transportation to medical appointments?: No Do you have trouble paying your heating and electricity bill?: No Do you have trouble taking care of your child, family member or friend?: No Do you have trouble with day-to-day activities such as bathing, preparing meals, shopping, managing finances, etc.?: No Are you currently unemployed and looking for a job?: No Are you interested in more education?: No Please select the resources that you would like help with: None Currently or been in a relationship where the following occur: No concerns reported THRIVE Score: 0 Physical exam (Primary Care) Vital Signs: Last Vital Signs Temp 97.3 F 08/02/25 13:33 Pulse 93 08/02/25 13:33 Resp 14 08/02/25 13:33 BP 156/78 H 08/02/25 13:57 Pulse Ox 97 08/02/25 13:33 Oxygen Delivery Method Room Air 08/02/25 13:33 BMI result Body Mass Index 23.2 Tobacco/Smoking Status: Tobacco use Status Tobacco use date assessed 07/05/25 07/05/25 11:59 Patient Tobacco Use Status Former Tobacco user 07/05/25 11:57 e-Cigarette/Vaping Use Never Used 07/05/25 11:57 Thrive Assessment: Date of Thrive Assessment Date Thrive assessed 01/03/25 07/05/25 11:57 Currently or been in a relationship where the following occur: No concerns reported Coding Level of Care Code Est Pt Level 4 (56532) Complex EM visit Add On [id number] Diagnoses Primary hypertension I10 Hypertension type: primary hypertension Anxiety F41.9 Assessment & Plan Assessment & Plan (1) Hypertension: Code(s): I10 - Essential (primary) hypertension Category: Medical Qualifiers: Hypertension type: primary hypertension Qualified Code(s): I10 - Essential (primary) hypertension (2) Anxiety: Code(s): F41.9 - Anxiety disorder, unspecified Category: Medical Plan . Orders: Orders Basic Metabolic Panel 2 Weeks I10 - Essential (primary) hypertension Medications: Changed From hydrochlorothiazide 12.5 mg PO DAILY To hydrochlorothiazide 12.5 mg PO BID 60 tabs 0RF
== END 2025-08-02 14:07 | disposition home or self-care (01) ==
LOC: HO.HMCFM 13:24
PROVIDERS: PCP Internal Medicine; Visit Provider Nurse Practitioner Family
DX: I10 Essential (primary) hypertension (principal); F41.9 Anxiety disorder, unspecified

== ENCOUNTER → 2025-08-02 13:24 | Outpatient (BNVA) | payer MEDICARE, SELFPAY | PROVIDERS: PCP Internal Medicine; Visit Provider Nurse Practitioner Family | DX: I10 Essential (primary) hypertension (principal); F41.9 Anxiety disorder, unspecified; E03.9 Hypothyroidism, unspecified; R42 Dizziness and giddiness | CPT/HCPCS: 99212 ==

== ENCOUNTER 2025-08-12 09:28 | Outpatient (REF) | payer MEDICARE, SELFPAY ==
[2025-08-12 11:55] LABS: Anion Gap 9 (12-20); Blood Urea Nitrogen 14 mg/dL (9-16); Calcium 8.8 mg/dL (8.4-10.2); Carbon Dioxide 33 mmol/L (22-29); Chloride 99 mmol/L (96-108); Estimated Glomerular Filt Rate > 60; Potassium 3.2 mmol/L (3.3-5.1); Sodium 138 mmol/L (135-145)
== END 2025-08-12 09:29 | disposition home or self-care (01) ==
LOC: HO.WFDLDS 09:28
PROVIDERS: Visit Provider Nurse Practitioner Family
DX: I10 Essential (primary) hypertension (principal)
CPT/HCPCS: 36415; 80048

== ENCOUNTER 2025-08-16 11:34 | Outpatient (AMB) | payer MEDICARE, SELFPAY ==
--- NOTE | 2025-08-16 11:43 | A.OFFPC_ITS ---
Vital Signs 08/16/25 11:46 Weight 126 lb BP 138/74 Blood Pressure Location Rt brachial Position Sitting Respiration 14 Pulse 66 Pulse Source Pulse Oximeter Pulse Oximetry (%) 98 Oxygen Delivery Method Room Air Intake Visit Reasons: 2 weeks with or bud [place] HTN, labs 1 day before Intake Note: Two week follow up Allergies latex Allergy (Severe, Verified 08/16/25 11:46) Difficulty Breathing lisinopril Adverse Reaction (Intermediate, Verified 08/16/25 11:46) Cough penicillin Allergy (Unknown, Uncoded 08/16/25 11:46) Unknown Tobacco use date assessed: 08/16/25 Dental Screening Dental Screen Date: 03/31/25 HPI HPI Comments History of Present Illness Details 64 year old female with a past medical h istory of hypertension, chronic anxiety, hypothyroidism, presenting for follow up CV: On amlodipine 10mg, hctz 12.5mg daily twice daily, valsartan 320 daily, atenolol 25mg daily. She was recently seen by a colleague for increased blood pressure readings at home and her hctz was increased to bid. Her potassium was recently lowish at 3.2. Her blood pressure has improved with the change in medications Denies chest pain, shortness of breath. BH: Was on zoloft, was on a low dose of lexapro which was good but when she tried to increase the lexapro and that was too much. Continues on 10mg daily. Was care giving for her mom, then sickly dog. Saw my colleague and was started on buspar. on propranolol. There was some mild improvement Endocrine: On levothyroxine 25 daily. Last TSH wnl. Mammo: Colonoscopy: ROS see HPI PHYSICAL EXAM: GENERAL: Alert and oriented x 3. NAD EYES: EOMI. Anicteric. HENT: Moist mucous membranes. No scleral icterus. No cervical lymphadenopathy. LUNGS: Clear to auscultation bilaterally. CARDIOVASCULAR: Regular rate and rhythm. No murmur. No JVD. ABDOMEN: Soft, non-tender +bs EXTREMITIES: No edema. Non-tender. SKIN: No rashes or lesions. Warm. NEUROLOGIC: No focal neurological deficits. CN II-XII grossly intact PSYCHIATRIC: Cooperative. Appropriate mood and affect [facility] Surgical History History of thyroid surgery Family History Mother HTN (hypertension) Father Bladder cancer Social History Housing: House Alcohol intake: current Patient Tobacco Use Status: Former Tobacco user Cigarette Packs Per Day: 1 Years Smoked: 10 e-Cigarette/Vaping Use: Never Used Second Hand Smoke Exposure: No service: No Current occupational status: retired Cognitive needs: No Hearing needs: No Vision needs: No Questionnaire Thrive Questionnaire Date Thrive assessed: 01/03/25 I am a: Patient What is your living situation today?: I have a steady place to live Within the past 12 months, did the food you bought not last and you didn't have the money to get more?: Never true Within the past 12 months, did you worry whether your food would run out before you got money to buy more?: Never true Do you have trouble paying for medicines?: No Do you have trouble getting transportation to medical appointments?: No Do you have trouble paying your heating and electricity bill?: No Do you have trouble taking care of your child, family member or friend?: No Do you have trouble with day-to-day activities such as bathing, preparing meals, shopping, managing finances, etc.?: No Are you currently unemployed and looking for a job?: No Are you interested in more education?: No Please select the resources that you would like help with: None Currently or been in a relationship where the following occur: No concerns reported THRIVE Score: 0 Physical exam (Primary Care) Vital Signs: Last Vital Signs Pulse 66 08/16/25 11:46 Resp 14 08/16/25 11:46 BP 138/74 08/16/25 11:46 Pulse Ox 98 08/16/25 11:46 Oxygen Delivery Method Room Air 08/16/25 11:46 Tobacco/Smoking Status: Tobacco use Status Tobacco use date assessed 08/16/25 08/16/25 11:48 Patient Tobacco Use Status Former Tobacco user 08/16/25 11:43 e-Cigarette/Vaping Use Never Used 08/16/25 11:43 Thrive Assessment: Date of Thrive Assessment Date Thrive assessed 02/24/25 10/07/25 11:43 Currently or been in a relationship where the following occur: No concerns reported Coding Level of Care Code Est Pt Level 4 (79106) Diagnoses Primary hypertension I10 Hypertension type: primary hypertension Hypothyroidism, unspecified type E03.9 Hypothyroidism type: unspecified Anxiety F41.9 Assessment & Plan Assessment & Plan (1) Hypertension: Code(s): I10 - Essential (primary) hypertension Category: Medical Qualifiers: Hypertension type: primary hypertension Qualified Code(s): I10 - Essential (primary) hypertension (2) Hypothyroid: Code(s): E03.9 - Hypothyroidism, unspecified Category: Medical Qualifiers: Hypothyroidism type: unspecified Qualified Code(s): E03.9 - Hypothyroidism, unspecified (3) Anxiety: Code(s): F41.9 - Anxiety disorder, unspecified Category: Medical Plan 64 year old for follow up Blood pressure not optimal but very much improved. Low K. Stop hctz 12.5 bid. Start triamterene hctz Follow up 6 weeks for bp check Anxiety is controlled on current medications Medications: New triamterene-hydrochlorothiazid 37.5-25 mg 1 tab PO DAILY 90 tabs 3RF valsartan 320 mg PO DAILY 90 tabs 3RF levothyroxine 25 mcg PO DAILY 90 tabs 3RF Discontinued hydrochlorothiazide Discontinued Reason: Doctor's Order 12.5 mg PO BID 60 tabs 0RF
[2025-08-16 11:46] VITALS: BP 138/74; PULSE 66; RESP 14; O2SAT 98
== END 2025-08-16 12:07 | disposition home or self-care (01) ==
LOC: HO.HMCFM 11:34
PROVIDERS: PCP Internal Medicine; Visit Provider Internal Medicine
DX: I10 Essential (primary) hypertension (principal); E03.9 Hypothyroidism, unspecified; F41.9 Anxiety disorder, unspecified

== ENCOUNTER → 2025-08-16 11:34 | Outpatient (BNVA) | payer MEDICARE, SELFPAY | PROVIDERS: PCP Internal Medicine; Visit Provider Internal Medicine | DX: I10 Essential (primary) hypertension (principal); E03.9 Hypothyroidism, unspecified; F41.9 Anxiety disorder, unspecified; Z79.899 Other long term (current) drug therapy | CPT/HCPCS: 99212 ==

== ENCOUNTER 2025-09-27 10:03 | Outpatient (AMB) | payer MEDICARE, SELFPAY ==
--- NOTE | 2025-09-27 10:08 | A.OFFPC_ITS ---
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 Allergies latex Allergy (Severe, Verified 09/27/25 10:11) Difficulty Breathing lisinopril Adverse Reaction (Intermediate, Verified 09/27/25 10:11) Cough penicillin Allergy (Unknown, Uncoded 09/27/25 10:11) Unknown Tobacco use date assessed: 09/27/25 Fall risk assessment: No Falls in past year Last assessed Fall Risk: 09/27/25 Dental Screening Dental Screen Date: 03/31/25 HPI HPI Comments History of Present Illness Details 64 year old female with a past medical h istory of hypertension, chronic anxiety, hypothyroidism, presenting for follow up CV: On amlodipine 10mg, triamterene-hctz, valsartan 320 daily, atenolol 25mg daily. Blood pressure is controlled. Her K will be rechecked. Denies chest pain, shortness of breath. BH: Was on zoloft, was on a low dose of lexapro which was good but when she tr ied to increase the lexapro and that was too much. Continues on 10mg daily. Was care giving for her mom, then sickly dog. Saw my colleague and was started on buspar. on propranolol. There was some mild improvement Endocrine: On levothyroxine 25 daily. Last TSH wnl. Notes a non healing zit or cyst behind the left ear. At one point she had popped it but then it redeveloped Mammo: Colonoscopy: ROS see HPI PHYSICAL EXAM: GENERAL: Alert and oriented x 3. NAD EYES: EOMI. Anicteric. HENT: Moist mucous membranes. No scleral icterus. No cervical lymphadenopathy. LUNGS: Clear to auscultation bilaterally. CARDIOVASCULAR: Regular rate and rhythm. No murmur. No JVD. ABDOMEN: Soft, non-tender +bs EXTREMITIES: No edema. Non-tender. SKIN: Behind the left ear there is a 1.5cm dermoid appearing cyst NEUROLOGIC: No focal neurological deficits. CN II-XII grossly intact PSYCHIATRIC: Cooperative. Appropriate mood and affect [facility] Surgical History History of thyroid surgery Family History Mother HTN (hypertension) Father Bladder cancer Social History Housing: House Alcohol intake: current Patient Tobacco Use Status: Former Tobacco user Cigarette Packs Per Day: 1 Years Smoked: 10 e-Cigarette/Vaping Use: Never Used Second Hand Smoke Exposure: No service: No Current occupational status: retired Cognitive needs: No Hearing needs: No Vision needs: No Questionnaire Thrive Questionnaire Date Thrive assessed: 01/03/25 I am a: Patient What is your living situation today?: I have a steady place to live Within the past 12 months, did the food you bought not last and you didn't have the money to get more?: Never true Within the past 12 months, did you worry whether your food would run out before you got money to buy more?: Never true Do you have trouble paying for medicines?: No Do you have trouble getting transportation to medical appointments?: No Do you have trouble paying your heating and electricity bill?: No Do you have trouble taking care of your child, family member or friend?: No Do you have trouble with day-to-day activities such as bathing, preparing meals, shopping, managing finances, etc.?: No Are you currently unemployed and looking for a job?: No Are you interested in more education?: No Please select the resources that you would like help with: None Currently or been in a relationship where the following occur: No concerns reported THRIVE Score: 0 AUDIT C Alcohol Use Questionnaire (AUDIT-C) 1. How often do you have a drink containing alcohol?: Never 3. How often do you have six or more drinks on one occasion?: Never Total Score: 0 Physical exam (Primary Care) Vital Signs: Last Vital Signs Temp 98.1 F 09/27/25 10:12 Pulse 73 09/27/25 10:12 Resp 14 09/27/25 10:12 BP 136/72 09/27/25 10:12 Pulse Ox 98 09/27/25 10:12 Oxygen Delivery Method Room Air 09/27/25 10:12 BMI result Body Mass Index 23.2 Tobacco/Smoking Status: Tobacco use Status Tobacco use date assessed 09/27/25 09/27/25 10:17 Patient Tobacco Use Status Former Tobacco user 09/27/25 10:09 e-Cigarette/Vaping Use Never Used 09/27/25 10:09 Thrive Assessment: Date of Thrive Assessment Date Thrive assessed 01/03/25 09/27/25 10:09 Currently or been in a relationship where the following occur: No concerns reported Coding Level of Care Code Est Pt Level 4 (02152) Complex EM visit Add On G2211 Diagnoses Primary hypertension I10 Hypertension type: primary hypertension Anxiety F41.9 Dermoid inclusion cyst L72.0 Assessment & Plan Assessment & Plan (1) Hypertension: Code(s): I10 - Essential (primary) hypertension Category: Medical Qualifiers: Hypertension type: primary hypertension Qualified Code(s): I10 - Essential (primary) hypertension (2) Anxiety: Code(s): F41.9 - Anxiety disorder, unspecified Category: Medical (3) Dermoid inclusion cyst: Code(s): L72.0 - Epidermal cyst Category: Medical Plan Hypertension-improved on current medications. Low salt diet Anxiety is stable on current medicaitons Cyst-referral gen surgery Orders: Orders Comprehensive Met. Panel Today I10 - Essential (primary) hypertension Referrals General Surgery Referral L72.0 - Epidermal cyst
[2025-09-27 10:12] VITALS: BP 136/72; PULSE 73; RESP 14; TEMP 36.7; O2SAT 98; BMI 23.2
== END 2025-09-27 10:38 | disposition home or self-care (01) ==
LOC: HO.HMCFM 10:04
PROVIDERS: PCP Internal Medicine; Visit Provider Internal Medicine
DX: I10 Essential (primary) hypertension (principal); F41.9 Anxiety disorder, unspecified; L72.0 Epidermal cyst

== ENCOUNTER 2025-09-27 10:03 | Outpatient (REF) | payer MEDICARE, SELFPAY ==
[2025-09-27 15:02] LABS: Alanine Aminotransferase 30 U/L (0-31); Albumin Level 4.6 g/dL (3.5-5.0); Alkaline Phosphatase 42 U/L (39-117); Anion Gap 13 (12-20); Aspartate Amino Transferase 36 U/L (5-31); Blood Urea Nitrogen 18 mg/dL (9-16); Calcium 9.5 mg/dL (8.4-10.2); Carbon Dioxide 28 mmol/L (22-29); Chloride 101 mmol/L (96-108); Estimated Glomerular Filt Rate 50; Potassium 3.9 mmol/L (3.3-5.1); Sodium 138 mmol/L (135-145); Total Protein 7.9 g/dL (6.5-8.0)
== END 2025-09-27 10:04 | disposition home or self-care (01) ==
LOC: HO.WFDLDS 10:03
PROVIDERS: PCP Internal Medicine; Visit Provider Internal Medicine
DX: I10 Essential (primary) hypertension (principal); F41.9 Anxiety disorder, unspecified; E03.9 Hypothyroidism, unspecified; L72.0 Epidermal cyst
CPT/HCPCS: 36415; 80053; 99212

== ENCOUNTER 2025-10-12 12:51 | Outpatient (AMB) | payer MEDICARE, SELFPAY ==
[2025-10-12 12:54] VITALS: BP 159/71; PULSE 69; BMI 23.4
--- NOTE | 2025-10-12 12:54 | MHC.OFFVIS ---
Vital Signs 10/12/25 12:54 Height 5 ft 1.8 in Weight 127 lb BMI 23.4 BP 159/71 H Blood Pressure Location Rt brachial Position Sitting Pulse 69 Intake Visit Reasons: epidermal cyst Intake Note: Patient referred by PCP Dr. Ilir Sherman for evaluation of cyst behind Lt ear. Present for 1yr. Patient c/o: started off as a pimple, keeps growing back. Denies pain, oozing. 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 Accompanied by: sister in law Keyla Allergies latex Allergy (Severe, Verified 10/12/25 12:59) Difficulty Breathing lisinopril Adverse Reaction (Intermediate, Verified 10/12/25 12:59) Cough penicillin Allergy (Unknown, Uncoded 10/12/25 12:59) Unknown Medication List - Last Reconciled 10/12/25 by Christopher Portillo MD amlodipine 10 mg PO DAILY atenolol 25 mg PO DAILY cholecalciferol (vitamin D3) PO escitalopram oxalate 10 mg PO DAILY levothyroxine 25 mcg PO DAILY lorazepam 0.5 mg PO BID PRN magnesium 250 mg PO DAILY mecobalamin (vitamin B12) PO DAILY multivitamin 1 tab PO DAILY triamterene-hydrochlorothiazid 37.5-25 mg 1 tab PO DAILY valsartan 320 mg PO DAILY HPI Comments Details: Patient reports longstanding history of a right upper back cyst as well as a left posterior auricular sebaceous cyst. She finds them bothersome and desires removal. She is also afraid of infection. She denies any trauma or instrumentation to either the regions. [facility] Surgical History History of thyroid surgery Family History Mother HTN (hypertension) Father Bladder cancer Social History Housing: House Alcohol intake: current Patient Tobacco Use Status: Former Tobacco user Cigarette Packs Per Day: 1 Years Smoked: 10 e-Cigarette/Vaping Use: Never Used Second Hand Smoke Exposure: No service: No Current occupational status: retired Cognitive needs: No Hearing needs: No Vision needs: No Review of Systems Const All systems reviewed & are unremarkable except as noted in HPI and below Physical Exam Vital Signs: Last Vital Signs Pulse 69 10/12/25 12:54 BP 159/71 H 10/12/25 12:54 BMI result Body Mass Index 23.4 Const General: cooperative, healthy appearing and comfortable Orientation/consciousness: oriented to person, oriented to place and oriented to time HEENT Outer ear/TM images:  1. Cyst (posterior aspect of auricle) Eyes General: appearance normal, both eyes and all related structures Pupils: Equal, round and reactive pupils present EOM: EOMs intact bilaterally Neck Neck: Yes normal visual inspection Chest Chest palpation & inspection: normal inspection of the chest Resp Effort & Inspection: normal respiratory effort and able to speak in complete sentences Cardio Rate: regular rate Rhythm: regular rhythm GI Inspection: Yes normal to inspection Back/Spine/Pelvis Back/spine/pelvis image:  1. 2cm diameter cystic mass consistent with EIC Neuro General: oriented to person, oriented to place and oriented to time Cranial nerves: Yes Equal, round and reactive pupils present Assessment & Plan Assessment & Plan (1) Dermoid inclusion cyst: Code(s): L72.0 - Epidermal cyst Category: Medical Plan: I offered the patient excisional biopsy of her right upper back epidermoid inclusion cyst. I reviewed with her the risks are involved. These include but are not limited to bleeding, infection, pain, unsightly scarring and cyst recurrence. She indicated that she understood. She told me she considered her options, she added that she accepted the risks that she described as inherent to such a procedure and lastly indicated she wished to proceed with surgery. Coding Level of Care Code New Pt Level 3 (15403) Diagnoses Dermoid inclusion cyst L72.0 Time Spent (min) 30 Comment Patient contact, record review and coordination of care time
--- OUTSIDE RECORDS SUMMARY | 2025-10-12 15:17 | XMS_ITS | Data Portability ---
Author Organization [facility], [address] Address [address] [place] [address] Assessment No assessment recorded. Plan of Treatment Reminders Order Date Submit Date Provider Last Modified By Organization Details Last Modified Time Details Appointments None recorded. Lab rapid strep group A, throat 2022 023 [facility], [address] [place], [address], 3 12:15:09 rapid flu (A+B) 2022 023 [facility], [address] [place], [address], 3 12:15:11 streptococc us group A, culture, throat 2022 023 [facility], [address] [place] [address], [place], [address], 3 08:07:49 Referral None recorded. Procedures None recorded. Surgeries None recorded. Imaging None recorded. Medication Orders benzonatate [address] [facility] #[id number], [address] [place], [address], 3 12:15:10 prednisone 20 mg tablet [address] [facility] #0838, [address] [place], [address], 12:15:10 albuterol sulfate HFA 90 mcg/actuati on aerosol inhaler [address] [facility] #0838, [address] [place], [address], 12:15:10 Allergy Relief (fluticason e) 50 mcg/actuati on nasal spray,suspe nsion [address] [facility] #0838, [address] [place], [address], 12:15:10 Patient TargetsNo targets recorded. Patient Instructions Encounter Date Encounter Id Patient Instructions Last Modified By Organization Details Last Modified Time 08/02/2023 [id number] sore throat: car e instructions marcel Not [...] Range : Negat karin Not Available [facility] ([facility]) [address] [facility], [place], [address], 08/05/2023 08:07:49 08/02/2008/02/2023 rapid flu (A+B) Unknown Analyte negati ve Not Available ie [address], [address], 08/02/2023 11:43:20 08/02/2008/02/2023 rapid flu (A+B) Unknown Analyte negati ve Not Available [facility] [address] [place] [address], [phone], 08/02/2023 11:43:20 08/02/2008/02/2023 rapid flu (A+B) Unknown Analyte negati ve Not Available [facility] [address] [place] [address], [phone], 08/02/2023 11:43:20 08/02/2008/02/2023 rapid flu (A+B) Unknown Analyte yes Not Available [facility] [address] [place] [address], [phone], 08/02/2023 11:43:20 08/02/2008/02/2023 rapid strep group A, throa t Unknown Analyte negati ve Not Available [id number] [place], [place] [address] [address] [place] [address], [address], 08/02/2023 11:43:11 08/02/2008/02/2023 rapid strep group A, throa t Unknown Analyte negati ve Not Available [id number] [place], [place] [address] [address] [place] [address], [address], 08/02/2023 11:43:11 08/02/20 23 08/02/2023 rapid strep group A, throa t Unknown Analyte yes Not Available [id number] [place], [place] [address] [address] [place] [address], [phone], 08/02/2023 11:43:11 Result Notes None recorded. Problems No Known Problems Medical Equipment None Reported. Allergies Allergen ID Allergen Name Allergen Category Reaction Reaction Severity Criticality Documentation Date Start Date Code Code System Note Provider Name and Address Organization Details Recorded Time 023842 Product containin g penicilli n (product) medicatio n Not available Not available Not available 08/02/2023 [id number] SNOMED [facility] 11:43:42 [id number] Bactrim medicatio n Not available Not available Not available 08/02/2023 30611 9 RxNorm [facility] 11:43:48 [...] ) 50 mcg/actuatio n nasal spray,suspen kassie Burbank 1 spray every day by intranasal route in the morning for 30 days. 2022 active Not Available Not Available Not Avai lable Vitals Date Recorded Body height Body mass index (BMI) Body weight Pain severity - 0-10 verbal numeric rating [Score] - Reported Respiratory rate Oxygen saturation Heart rate Body temperature Systolic And Diastolic Provider Name and Address Organization Details Last Updated DateTime 157.48 cm 22.9 kg/m2 25524.0 5 g 0 19 /min 97 % 77 /min 98.7 [degF] 159/99 mm[Hg] [facility] 11:46:49 Social History [...] Diagnosis SNOMED-CT Code Diagnosis ICD10 Code Diagnosis IMO Codes Diagnosis Note [id number] [place] [address] [address] 08/02/2023 11:32:51 08/02/2023 12:16:37 Acute pharyngitis 086158192 J02.9 Acute bronchitis 8046747 2 J20.9 Health Concerns Section Related Observation LastModified by Organization Detai ls LastModified Time None Recorded Concern Status LastModified by Organization Details LastModified Time None Recorded Advance Directives Directive None Recorded Payers Insurance Date Sequence Insurance Name Policy Number Policy Meadows Covered Member ID Meadows Member ID Guarantor Name 08/02/2023 PROMPT PAY Casey Akers Notes Date Note Type Note Provider Name and Address Organization Details Recorded Time 08/02/2023 text/html Sore throatRepor pema by PatientSore ThroatFor associated symptoms, patient reportssore throat,hoarseness,cough ing, andsinus pain/ congestionbut reportsno sputum production,no shortness of breath,no wheezing,no vomiting, andno nausea. For context, patient reportssick contactbut reportsno foreign travelandnon-smoker. For modifying factors, patient reportsexposed to strep non household. For source of patient information, patient reportsinformation obtained from patient,patient arrived at urgent care ambulatory, andlearning styles: auditory. For location, patient reportsthroat. For severity, patient reportsmild. For quality, patient reportssharpandburning. For onset/timing, patient reports3 days. Cole Cedeno NP [address] [place], [address], [place] - [facility] 08/02/2023 12:15:44 OBGyn Episode No OBEpisode recorded.
== END 2025-10-12 13:14 | disposition home or self-care (01) ==
LOC: HO.HGS 12:52
PROVIDERS: PCP Internal Medicine; Visit Provider Surgery
DX: L72.0 Epidermal cyst (principal)
CPT/HCPCS: 99203

== ENCOUNTER → 2025-10-12 12:51 | Outpatient (BNVA) | payer MEDICARE, SELFPAY | PROVIDERS: PCP Internal Medicine; Visit Provider Surgery | DX: L72.0 Epidermal cyst (principal) | CPT/HCPCS: 99202 ==